=== PATIENT | male | born 1930 | race Caucasian/White ===

== ENCOUNTER 2017-02-19 15:46 | Observation (INO) | payer MEDICARE, MEDICAID ==
[~2017-02-19] VITALS: Ht 172.7 cm; Wt 80.9 kg
[~2017-02-19 15:46] MED LIST: AMLODIPINE5 MG PO; ASPIRIN CHILDRE81 MG PO; BENTYL10 MG OR; BENTYL10 MG PO; FLOMAX 0.4MG C0.4 MG PO; GLIMEPIRIDE4 MG PO; GLIPIZIDE5 MG PO; JANUVIA100 MG PO; LISINOPRIL 10MG10 MG PO; MEDROL 4MG. DOSE4 MG PO; MELOXICAM7.5 MG PO; METFORMIN500 MG PO; OMEPRAZOLE20 MG PO; PHENERGAN 25MG.25 M1 PO; PRINIVIL20 MG NG; PROMETHAZINE12.5 M1 PO; SIMVASTATIN10 MG PO; TYLENOL 325MG325 MG PO
[2017-02-19 15:53] VITALS: BP 116/73
--- NOTE | 2017-02-19 16:23 | Emergency Room Report ---
History of Present Illness Time Seen by [id number] Presenting Problem in Triage Pt arrived:Walked Presenting Problem:PT WAS AT [facility] AND WAS HAVING P.T. AND BEGAN TO HAVE SOME LEFT SIEDED CHEST PAIN AND WEAK LEGS. 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 N Clinical Suspician of Infection? Y Mental Status: 1 - Regular (Normal Baseline) Sepsis Risk:Low Sepsis Risk Have you (or family members/close friends) recently traveled outside the [place]? N If Yes, where/when: Have you had exposure to infectious disease within the past month? N TB? Other? Specify: Source patient, RN notes reviewed, family, RN/MD Exam Limitations no limitations Comment This is a 86-year-old male patient brought from [facility] with chest pain, single episode, onset around 1:30 PM, while in physical therapy. Episode was short-lived, 2-3 minutes, without associated shortness of breath, diaphoresis. Patient denies any previous cardiac history in the past, denies any previous similar episodes in the past. ALLERGIES Coded Allergies: procaine (From NOVOCAIN) (02/19/17) Home Medications Reported Medications INSULIN NPL/INSULIN LISPRO (Humalog Mix 75-25 Vial) 25 UNITS SC DAILY INSULIN NPL/INSULIN LISPRO (Humalog Mix 75-25 Vial) 20 UNITS SC DAILY Aspirin 81 MG PO DAILY Carvedilol (Coreg 6.25MG) 6.25 MG PO BID Apixaban (Eliquis) 5 MG PO BID Finasteride (Proscar 5MG Tablet) 5 MG PO DAILY Furosemide 40 MG PO BID Metronidazole (Flagyl 250MG) 500 MG PO TID Omeprazole (Omeprazole 20MG) 20 MG PO DAILY POTASSIUM CHL (Potassium Chloride) 20 MEQ PO DAILY TAMSULOSIN HCL (Flomax 0.4MG) 0.4 MG PO QHS Vancomycin HCl 250 MG PO DAILY History Medical History General CAD? No Angina: No ME: No Hypertension? Yes Hyperlipidemia? No CHF? No DVT? No PE? No COPD? No Asthma? No Anemia? No GERD? No Gastric ulcers? No GI Bleed? No Hernia? No Thyroid Problems? No Hypothyroidism? No CVA? Yes Seizures? 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 Yes Renal Insuffiency? No End Stage Renal Disease? No UTI? No Stones? No BPH? No GB Disease: Yes Nephritic Syndrome? No Asplenia? No Hepatitis? No Sickle Cell Disease? No Arthritis? Yes Migraines? No Cataracts? No Glaucoma? No MRSA? No HIV? No TB? No Anxiety? No Depression? No Cancer? Yes Site: [place]EMIA Immunization Hx DT/Tetanus UNKNOWN Flu LAST YEAR Pneumonia 1-4 YRS Surgical Hx Previous Surgery?Y FACIAL SKIN CA REMOVED Cholecystectomy Family History Family Hx Diabetes Yes CAD Yes Hypertension Yes Hyperlipidemia Yes Cancer Yes TB No Social History Smoking Hx Smoker: Former Smoker Tobacco: Yes Type Cigarettes Alcohol Alcohol: No Review of Systems All Other Systems Reviewed and Negative Cardiovascular chest pain, palpitations Physical Exam Vital Signs Vital Signs Date Time Temp Pulse Resp B/P Pulse O2 O2 Flow FiO2 Ox Delivery Rate 02/19 1812 98.4 76 16 137/71 100 08/10 1719 76 16 137/71 100 08/10 1638 100 08/10 1553 98.4 75 16 116/73 100 General Appearance normal appearance, WD/WN, no apparent distress Neck normal inspection, non-tender, supple, full range of motion Respiratory Status Yes: trachea midline, chest symmetrical, non tender chest. No: respiratory distress. Lung Sounds bilateral: normal breath sounds, lungs clear. 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 No Comment 17:25-case discussed with Dr. Weaver, advised the patient presentation and findings, lack of any previous cardiac workup as well as cardiac history, agreeable with hospitalization. Care transferred to Dr. Weaver at this time. I will write temporary, bridge, admission orders at this time, with units nurse to contact Dr. Weaver upon patient's arrival to the floor in order to obtain for inpatient admission orders. Results/Orders Laboratory Tests 02/19/17 1830: Creatine Kinase 35 L, CK-MB (CK-2) Rel Index 1.7, CK and CKMB Interp 0.6, Troponin I < 0.02 02/19/17 1601: Sodium 134 L, Potassium 5.0, Chloride 102, Carbon Dioxide 27, BUN 27 H, Creatinine 1.5 H, Estimated Creat Clear 37 L, Estimated GFR (MDRD) 44, Glucose 367 H, Calcium 8.8, Total Bilirubin 0.2, AST 16, ALT 12, Alkaline Phosphatase 81, Creatine Kinase 41, CK and CKMB Interp < 0.5, Troponin I < 0.02, Total Protein 7.7, Albumin 3.0 L, Globulin 4.7 H, Albumin/Globulin Ratio 0.6 L, WBC 5.0, RBC 3.91 L, Hgb 11.0 L, Hct 35.7 L, MCV 91.4, RDW 16.9, Plt Count 136 L , MPV 8.9, Gran % 69.9, Gran # 3.5, Lymphocytes % 18.7, Monocytes % 5.0, Eosinophils % 5.4, Basophils % 1.2, Lymphocytes # 0.9, Monocytes # 0.3, Eosinophils # 0.3, Basophils # 0.1, PUBS MCHC 30.9 L, MCH 28.2 Current Medication Orders Sig/Dio Start time Last Medication Dose Route Stop Time Status Admin Ceftriaxone Sodium 1 GM DAILY 02/20 0900 UNV Sodium Chloride 50 ML IV Vancomycin HCl 250 MG Q6H 02/19 1800 CAN PO Vancomycin HCl 250 MG DAILY 02/19 1750 UNV PO Aspirin 0 .STK-MED ONE 02/19 1619 DC .ROUTE Aspirin 325 MG ONCE ONE 02/19 1600 DC 02/19 PO 02/19 1601 1619 Sodium Chloride 10 ML PRN PRN 02/19 1600 AC IV 02/20 1558 Orders Procedure Date/time Status [id number] FAT/LO CHO/ONOFRE 02/20 B Active CARDIAC ENZYMES 02/19 2355 Active CARDIAC ENZYMES 02/19 1800 Complete Decision to admit 02/19 1735 Active 12 LEAD EKG-TAIWO (INITIAL) 02/19 1600 Active ELECTROCARDIOGRAM REQUEST 02/19 1559 Active IV SALINE LOCK 02/19 1559 Active OXYGEN PER NURSE 02/19 1559 Active KEYBOARD INSTRUMENT TUNER 02/19 1559 Active TROPONIN I 02/19 1559 Complete CPK 02/19 1559 Complete COMPLETE METABOLIC PANEL 02/19 1559 Complete CKMB 02/19 155 Complete CBC WITH AUTO DIFF 02/19 1559 Complete ADMIT PATIENT 02/19 UNK Active PULSE OXIMETRY REQUEST 02/19 UNK Active VITAL SIGNS 02/19 UNK Active APPRENTICE ARCHITECT 02/19 UNK Active POM NURSE MEMO HOSE ORDER 02/19 UNK Active CODE STATUS 02/19 UNK Active PATIENT ACTIVITY ORDER 02/19 UNK Active CM/EKG CM/satellite dish technician Rhythm Normal Sinus Rhythm Rate 85 Ectopy No Comments No acute ischemic changes EKG rate, NSR, rhythm, no evid. of ischemic chgs, no ectopy, normal QRS, normal HI, normal EKG, no EKG for comparison, non-spec. ST/Twave chgs, ST elevation, ST depression, LBBB, RBBB, ectopy, abnormal Q waves XRAY/CT/US XRAY/CT/US XRAY chest XR interpretation by reviewed by me Xray Results normal lungs, normal cardiac silhouette, no acute process Departure Departure Time of Disposition 1718 Disposition Still a Patient Clinical Impression Primary Impression: Chest pain Qualifiers: Chest pain type: unspecified Qualified Code: R07.9 - Chest pain, unspecified Condition STABLE Referrals KATHIE JOYA (Family) ED Critical Care Critical Care No at 1955
--- NOTE | 2017-02-19 16:23 | Emergency Room Report ---
History of Present Illness Time Seen by [id number] Presenting Problem in Triage Pt arrived:Walked Presenting Problem:PT WAS AT [facility] AND WAS HAVING P.T. AND BEGAN TO HAVE SOME LEFT SIEDED CHEST PAIN AND WEAK LEGS. 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 N Clinical Suspician of Infection? Y Mental Status: 1 - Regular (Normal Baseline) Sepsis Risk:Low Sepsis Risk Have you (or family members/close friends) recently traveled outside the [place]? N If Yes, where/when: Have you had exposure to infectious disease within the past month? N TB? Other? Specify: Source patient, RN notes reviewed, family, RN/MD Exam Limitations no limitations Comment This is a 86-year-old male patient brought from [facility] with chest pain, single episode, onset around 1:30 PM, while in physical therapy. Episode was short-lived, 2-3 minutes, without associated shortness of breath, diaphoresis. Patient denies any previous cardiac history in the past, denies any previous similar episodes in the past. ALLERGIES Coded Allergies: procaine (From NOVOCAIN) (02/19/17) Home Medications Reported Medications INSULIN NPL/INSULIN LISPRO (Humalog Mix 75-25 Vial) 25 UNITS SC DAILY INSULIN NPL/INSULIN LISPRO (Humalog Mix 75-25 Vial) 20 UNITS SC DAILY Aspirin 81 MG PO DAILY Carvedilol (Coreg 6.25MG) 6.25 MG PO BID Apixaban (Eliquis) 5 MG PO BID Finasteride (Proscar 5MG Tablet) 5 MG PO DAILY Furosemide 40 MG PO BID Metronidazole (Flagyl 250MG) 500 MG PO TID Omeprazole (Omeprazole 20MG) 20 MG PO DAILY POTASSIUM CHL (Potassium Chloride) 20 MEQ PO DAILY TAMSULOSIN HCL (Flomax 0.4MG) 0.4 MG PO QHS Vancomycin HCl 250 MG PO DAILY History Medical History General CAD? No Angina: No MS: No Hypertension? Yes Hyperlipidemia? No CHF? No DVT? No PE? No COPD? No Asthma? No Anemia? No GERD? No Gastric ulcers? No GI Bleed? No Hernia? No Thyroid Problems? No Hypothyroidism? No CVA? Yes Seizures? 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 Yes Renal Insuffiency? No End Stage Renal Disease? No UTI? No Stones? No BPH? No GB Disease: Yes Nephritic Syndrome? No Asplenia? No Hepatitis? No Sickle Cell Disease? No Arthritis? Yes Migraines? No Cataracts? No Glaucoma? No MRSA? No HIV? No TB? No Anxiety? No Depression? No Cancer? Yes Site: [place]EM[place] Immunization Hx DT/Tetanus UNKNOWN Flu LAST YEAR Pneumonia 1-4 YRS Surgical Hx Previous Surgery?Y FACIAL SKIN CA REMOVED Cholecystectomy Family History Family Hx Diabetes Yes CAD Yes Hypertension Yes Hyperlipidemia Yes Cancer Yes TB No Social History Smoking Hx Smoker: Former Smoker Tobacco: Yes Type Cigarettes Alcohol Alcohol: No Review of Systems All Other Systems Reviewed and Negative Cardiovascular chest pain, palpitations Physical Exam Vital Signs Vital Signs Date Time Temp Pulse Resp B/P Pulse O2 O2 Flow FiO2 Ox Delivery Rate 02/19 1812 98.4 76 16 137/71 100 08/10 1719 76 16 137/71 100 08/10 1638 100 08/10 1553 98.4 75 16 116/73 100 General Appearance normal appearance, WD/WN, no apparent distress Neck normal inspection, non-tender, supple, full range of motion Respiratory Status Yes: trachea midline, chest symmetrical, non tender chest. No: respiratory distress. Lung Sounds bilateral: normal breath sounds, lungs clear. 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 No Comment 17:25-case discussed with Dr. Weaver, advised the patient presentation and findings, lack of any previous cardiac workup as well as cardiac history, agreeable with hospitalization. Care transferred to Dr. Weaver at this time. I will write temporary, bridge, admission orders at this time, with units nurse to contact Dr. Weaver upon patient's arrival to the floor in order to obtain for inpatient admission orders. Results/Orders Laboratory Tests 02/19/17 1830: Creatine Kinase 35 L, CK-MB (CK-2) Rel Index 1.7, CK and CKMB Interp 0.6, Troponin I < 0.02 02/19/17 1601: Sodium 134 L, Potassium 5.0, Chloride 102, Carbon Dioxide 27, BUN 27 H, Creatinine 1.5 H, Estimated Creat Clear 37 L, Estimated GFR (MDRD) 44, Glucose 367 H, Calcium 8.8, Total Bilirubin 0.2, AST 16, ALT 12, Alkaline Phosphatase 81, Creatine Kinase 41, CK and CKMB Interp < 0.5, Troponin I < 0.02, Total Protein 7.7, Albumin 3.0 L, Globulin 4.7 H, Albumin/Globulin Ratio 0.6 L, WBC 5.0, RBC 3.91 L, Hgb 11.0 L, Hct 35.7 L, MCV 91.4, RDW 16.9, Plt Count 136 L , MPV 8.9, Gran % 69.9, Gran # 3.5, Lymphocytes % 18.7, Monocytes % 5.0, Eosinophils % 5.4, Basophils % 1.2, Lymphocytes # 0.9, Monocytes # 0.3, Eosinophils # 0.3, Basophils # 0.1, PUBS MCHC 30.9 L, MCH 28.2 Current Medication Orders Sig/Dio Start time Last Medication Dose Route Stop Time Status Admin Ceftriaxone Sodium 1 GM DAILY 02/20 0900 UNV Sodium Chloride 50 ML IV Vancomycin HCl 250 MG Q6H 02/19 1800 CAN PO Vancomycin HCl 250 MG DAILY 02/19 1750 UNV PO Aspirin 0 .STK-MED ONE 02/19 1619 DC .ROUTE Aspirin 325 MG ONCE ONE 02/19 1600 DC 02/19 PO 02/19 1601 1619 Sodium Chloride 10 ML PRN PRN 02/19 1600 AC IV 02/20 1558 Orders Procedure Date/time Status [id number] FAT/LO CHO/ONOFRE 02/20 B Active CARDIAC ENZYMES 02/19 2355 Active CARDIAC ENZYMES 02/19 1800 Complete Decision to admit 02/19 1735 Active 12 LEAD EKG-TAIWO (INITIAL) 02/19 1600 Active ELECTROCARDIOGRAM REQUEST 02/19 1559 Active IV SALINE LOCK 02/19 1559 Active OXYGEN PER NURSE 02/19 1559 Active JOB PUTTER UP AND TICKET PREPARER 02/19 1559 Active TROPONIN I 02/19 1559 Complete CPK 02/19 1559 Complete COMPLETE METABOLIC PANEL 02/19 1559 Complete CKMB 02/19 155 Complete CBC WITH AUTO DIFF 02/19 1559 Complete ADMIT PATIENT 02/19 UNK Active PULSE OXIMETRY REQUEST 02/19 UNK Active VITAL SIGNS 02/19 UNK Active INDUSTRIAL ORGANIZATION MANAGER 02/19 UNK Active POM NURSE MEMO HOSE ORDER 02/19 UNK Active CODE STATUS 02/19 UNK Active PATIENT ACTIVITY ORDER 02/19 UNK Active CM/EKG CM/temperature logging operator Rhythm Normal Sinus Rhythm Rate 85 Ectopy No Comments No acute ischemic changes EKG rate, NSR, rhythm, no evid. of ischemic chgs, no ectopy, normal QRS, normal [place], normal EKG, no EKG for comparison, non-spec. ST/Twave chgs, ST elevation, ST depression, LBBB, RBBB, ectopy, abnormal Q waves XRAY/CT/US XRAY/CT/US XRAY chest XR interpretation by reviewed by me Xray Results normal lungs, normal cardiac silhouette, no acute process Departure Departure Time of Disposition 1718 Disposition Still a Patient Clinical Impression Primary Impression: Chest pain Qualifiers: Chest pain type: unspecified Qualified Code: R07.9 - Chest pain, unspecified Condition STABLE Referrals KATHIE JOYA (Family) ED Critical Care Critical Care No at 1955
[2017-02-19 16:25] LABS: LYMPH # 0.9 K/mm3 (0.7-4.5); LYMPH % 18.7 % (10-50)
[2017-02-19] MEDS ORDERED: COREG 6.25MG6.25 MG PO (16:26)
[2017-02-19] MEDS ORDERED: ASPIRIN ADULT L81 M2 PO (16:26)
[2017-02-19] MEDS ORDERED: ELIQUIS5 MG PO (16:27)
[2017-02-19] MEDS ORDERED: PROSCAR 5MG TABL5 MG PO (16:29)
[2017-02-19] MEDS ORDERED: FUROSEMIDE 40MG40 M1 PO (16:30)
[2017-02-19] MEDS ORDERED: FLAGYL 250MG.250 MG PO (16:33)
[2017-02-19] MEDS ORDERED: OMEPRAZOLE20 MG PO (16:34)
[2017-02-19] MEDS ORDERED: FLOMAX 0.4MG C0.4 MG PO (16:35)
[2017-02-19] MEDS ORDERED: POTASSIUM CHLO20 ME2 PO (16:35)
[2017-02-19] MEDS ORDERED: VANCOMYCIN125 MG/2.5 PO (16:37)
--- NOTE | 2017-02-19 16:46 | RADIOLOGY REPORT PS360 ---
CHEST-PORTABLE HISTORY: Left-sided chest pain pain ORDERING PHYSICIAN: Donovan Montalvo MD PATIENT AGE: 86 years COMPARISON: None available FINDINGS: The cardiomediastinal silhouette and pulmonary vascularity are within normal limits. Right upper extremity PICC line is present. The tip is not well delineated. The most distal visualized portion of the PICC line is in region of the superior vena cava. No lobar consolidation or collapse. There are mild degenerative changes in the shoulders. IMPRESSION: 1. No acute finding. 2. Right upper extremity PICC line present
[2017-02-19 16:52] LABS: BUN 27 mg/dL (7-18)
[2017-02-19 16:53] LABS: GFR (ESTIMATED) 44 ML/MIN (>60)
[2017-02-19] MEDS ORDERED: HUMALOG MIX 75/10 ML SC ×2 (19:11→19:12)
[2017-02-19 19:13] VITALS: BP 178/84
[2017-02-19 19:17] VITALS: BP 178/84
--- OUTSIDE RECORDS SUMMARY | 2017-02-19 19:27 | External Medical Summary Rpt ---
Author Author , GABY GRIFFIN Address Unknown Phone [email or web address] Care Team Providers Care Tint Layer Name Role Phone WILLARD, WILLARD Unavailable Unavailable WILLARD JACQUE, WILLARD Unavailable Unavailable [facility], [facility] AMEENA, AMEENA Unavailable Unavailable [facility] Unavailable Unavailable SERVICES, [facility] Unavailable Unavailable SERVICES, [facility] Unavailable Unavailable HOSPITAL P, [facility] HE[facility], HEART Unavailable Unavailable [facility] Unavailable Unavailable [facility]INGS, [facility] Unavailable Unavailable [facility]INGS, [facility] RAUL, RAUL Unavailable Unavailable RAUL, RAUL Unavailable Unavailable [facility] Unavailable [facility], [facility] Unavailable Unavailable [facility]ATR, [facility] Unavailable Unavailable ASSOC[facility], [facility] Unavailable Unavailable MEDICAL, [facility] MONNIG, MONNIG Unavailable Unavailable DAVID, DAVID Unavailable Unavailable DAVID JAM, DAVID Unavailable Unavailable [facility] Unavailable Unavailable [facility], [facility] PAWSAT, PAWSAT Unavailable Unavailable PAWSAT, PAWSAT Unavailable Unavailable PAWSAT [facility], PAWSAT Unavailable Unavailable [facility], Unavailable [facility] Unavailable Unavailable EMERGENCY PHYS, [facility] MICHELLE, Unavailable Unavailable [facility] Unavailable Unavailable [facility] ABRAHAM, ABRAHAM Unavailable Unavailable NICOLAS, NICOLAS Unavailable Unavailable [facility] Unavailable Unavailable #1569, [facility] Unavailable Unavailable #1569, [facility] TRACY, Unavailable Unavailable JASKARAN CHINCHILLA Unavailable Unavailable DARLIN, DARLIN Unavailable Unavailable Purpose Continuity of Care Document - 07-31-2015 through 2016 Problems Code Diagnosis DOS Provider Status 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 [facility] WITH HYPERGLYCEM IA K750 ABSCESS OF 01-26-2017 [facility] LIVER INTERNAL & PEDIATR Z1883 RETAINED 01-26-2017 [place] STONE OR INTERNAL & CRYSTALLINE PEDIATR FRAGMENTS Z8719 PERSONAL 01-26-2017 [facility] HISTORY INTERNAL & OTHER PEDIATR DISEASES DIGESTIVE SYSTEM 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 M6281 MUSCLE 01-18-2017 [facility] WEAKNESS RESPITATORY GENERALIZED SERVICES R296 REPEATED 01-18-2017 [facility] RESPITATORY SERVICES L0291 CUTANEOUS 01-12-2017 [place] ABSCESS INTERNAL & UNSPECIFIED PEDIATR R1900 INTRA-ABD & 01-12-2017 [place] PELVIC INTERNAL & SWELLING PEDIATR MASS & LUMP UNS SITE Z794 FCI 01-12-2017 [place] CURRENT USE INTERNAL & OF INSULIN PEDIATR E119 TYPE 2 11-04-2016 [facility]US [facility]AT[facility] WITHOUT COMPLICATIO NS I2699 OTH 11-04-2016 [facility] PULMONARY [facility] & EMBOLISM PEDIATR W/O ACUTE COR PULMONALE I272 OTHER 11-04-2016 [place] SECONDARY INTER[facility] & PULMONARY PEDIATR HYPERTENSIO N H74959 PERSONAL 11-04-2016 [place] HISTORY OF INTERNAL & PULMONARY PEDIATR EMBOLISM R339 RETENTION 10-28-2016 [facility] P E1122 TYPE 2 10-19-2016 [facility] REG[facility]AL MELLITUS MEDICAL W/DIAB CHRON KIDNEY DZ N390 URINARY 10-19-2016 [facility] TRACT REGIONAL INFECTION MEDICAL SITE NOT SPECIFIED N401 BENIGN 10-08-2016 [facility] LW URINARY TRACT SX N400 BENIGN 10-04-2016 RAUL PROSTATIC HYPERPLASIA WO LW URIN TRACT SX R55 SYNCOPE AND 10-04-2016 [facility] COLLAPSE 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 A047 ENTEROCOLIT 09-25-2016 [facility] IS DUE TO AL[facility] CLOSTRIDIUM REHABILITAT DIFFICILE ION I129 HYPERTENSIV 09-25-2016 [facility] E CKD ALISON W/STAGE 1-4 REHABILITAT CKD OR UNS ION CKD T24473 FOOT DROP 09-25-2016 [facility] RIGHT FOOT [facility] REHABILITAT ION N183 CHRONIC 09-25-2016 [facility] KIDNEY [facility]ISON DISEASE REHABILITAT STAGE 3 ION MODERATE R5381 OTHER 09-25-2016 [facility] REHAB[facility]IT[facility] ION I959 HYPOTENSION 09-22-2016 [facility] UNSPECIFIED ASSOCIAT M7989 OTHER 09-22-2016 [place] SPECIFIED RADI[facility]Y SOFT TISSUE ASSOCIAT DISORDERS R000 TACHYCARDIA 09-22-2016 [facility] UNSPECIFIED ASSOCIAT A4189 OTHER 09-20-2016 [facility] SPECIFIED N EMERGENCY SEPSIS PHYS A419 SEPSIS 09-20-2016 [facility] UNSPECIFIED REGIONAL ORGANISM MEDICAL E875 HYPERKALEMI 09-20-2016 [facility] PH[facility] 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 09-20-2016 [place] SIS LG RAD[facility] INTEST W/O ASSOCIAT PERF/ABSC W/O BLEED N179 ACUTE 09-20-2016 [facility] KIDNEY N EMERGENCY FAILURE PHYS UNSPECIFIED R0602 SHORTNESS 09-20-2016 [place] OF BREATH RADIOLOGY ASSOCIAT R112 NAUSEA WITH 09-20-2016 [facility] VOMITING [facility] UNSPECIFIED ASSOCIAT R410 DISORIENTAT 09-20-2016 [place] ION RADIOLOG[facility] UNSPECIFIED ASSOCIAT R531 WEAKNESS 09-20-2016 [facility] ASS[facility]IAT R935 ABN FIND DX 09-20-2016 [place] IMAG OTH RAD[facility]OLOG[facility] ABD REGIONS ASSOCIAT RETROPERITO NEUM D509 IRON 09-11-2016 [facility] UNSPECIFIED 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 E785 HYPERLIPIDE 09-11-2016 [facility] UNSPECIFIED HEALTH CTR I10 ESSENTIAL 08-26-2016 [facility]IMARY [facility] HYPERTENSIO HEALTH CTR N C53642 CUTANEOUS 08-19-2016 [facility] ABSCESS OF RADIOLOGY ABDOMINAL ASSOCIAT WALL K651 PERITONEAL 07-31-2016 [place] ABSCESS [facility] ASSOCIAT M1990 UNSPECIFIED 07-30-2016 [facility] REGIONAL OSTEOARTHRI MEDICAL TIS UNSPECIFIED SITE R1011 RIGHT UPPER 07-30-2016 [facility] PAIN PHYSICIANS MAY Z823 FAMILY 07-30-2016 [facility] HISTORY OF REGIONAL STROKE MEDICAL Z8249 FAMILY HX 07-30-2016 [facility] ISCHEMIC REGIONAL HRT DZ OTH MEDICAL DZ CIRC SYSTEM Z833 FAMILY 07-30-2016 [facility] HISTORY OF REGIONAL DIABETES MEDICAL MELLITUS Z8572 PERSONAL 07-30-2016 [facility] HISTORY OF REGIONAL NON-HODGKIN MEDICAL LYMPHOMAS M545 LOW BACK 07-22-2016 [facility] PAIN FAMILY 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 CTR I6616FM FRACTURE 07-22-2016 [facility] ONE RIB INC RIGHT INITIAL ENCNTR CLOSED FX B351 TINEA 07-16-2016 [facility] UNGUIUM I49781 PAIN IN 07-16-2016 [facility] RIGHT FOOT P13186 PAIN IN 07-16-2016 [facility] LEFT FOOT G07576 PAIN IN 06-12-2016 [facility] LEFT LOWER INC LEG Q03444 PAIN IN 05-15-2016 [facility] RIGHT KNEE [facility] CTR N54416 PAIN IN 05-15-2016 [facility] LEFT KNEE [facility] CTR R3914 FEELING OF 04-08-2016 [facility] P EMPTYING R5383 OTHER 04-02-2016 [facility] FATIGUE [facility]ARY HOLDINGS E1140 TYPE 2 DM 02-27-2016 [facility]ACY DI[facility] #1569 NEUROPATHY UNSPECIFIED 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 CTR W/HYPOGLYCE ANKITA W/O COMA I83279 PAIN IN 12-26-2015 [facility] RIGHT HIP [facility] CTR P47088 OTHER LONG 12-26-2015 [facility] TERM FAMILY CURRENT HEALTH CTR DRUG THERAPY Allergies, Adverse Reactions, Alerts Clinical Alert Notifications Alert Diabetes: no eye exam in the last 365 days Diabetes: no influenza vaccine in the last 365 days Diabetes: no lipid panel in the last 365 days Member has >/= 3 hosp admit & >/= 1 ED visit in 365 days Procedures Procedure DOS Code Location Performer Comment CUL BACT 02531 [facility] XCPT 7 [facility] URINE HOLDINGS HOLDINGS BLOOD/STO OL AEROBIC ISOL COMMODE E0165 [facility] MEG CHAIR 7 RESPITATO RESPITATO MOBILE/ST RY RY ATIONARY SERVICES SERVICES W/DETACHB LE ARMS CUL BACT 61996 [facility] XCPT 7 MARY MARY URINE HOLDINGS HOLDINGS BLOOD/STO OL AEROBIC ISOL CUL BACT 68036 [facility] 7 W W ADDL REGIONAL REGIONAL METHS MEDICAL MEDICAL DEFINITIV E EA ISOL CULTURE 05154 [facility] KATHIE BACTERIAL 7 W W [facility] QUANTTATI MEDICAL MEDICAL VE COLONY COUNT URINE BASIC 19207 KATHIE MEAWROSY METABOLIC 7 W W [facility] CALCIUM MEDICAL MEDICAL TOTAL COMMODE E0165 MEG MEG CHAIR 7 RESPITATO RESPITATO MOBILE/ST RY RY ATIONARY SERVICES SERVICES W/DETACHB LE ARMS SUSCEPTIB 30346 KATHIE BENAVIDEZWROSY LTY STDY 7 W W [facility] IA MEDICAL MEDICAL MICRO/AGA R DILUTJ URNLS DIP 26962 PRAMODWROSY MEAWVIE 7 W W STICK/TAB [facility] LET MEDICAL MEDICAL REAGENT AUT[facility] [address] [place] [address] PHYSICAL DAY MEDICINE MANAGEMEN AND T 30 MIN/< SBSQ 82537 [place] [address] PHYSICAL CARE/DAY MEDICINE 15 AND MINUTES SBSQ 79700 [facility] 7 CARE/DAY 25 MINUTES SBSQ 55861 [place] [address] PHYSICAL CARE/DAY MEDICINE 25 AND MINUTES SBSQ 23329 [place] [address] PHYSICAL CARE/DAY MEDICINE 25 AND MINUTES SBSQ 82987 [facility] 7 CARE/DAY 25 MINUTES SBSQ 90247 [facility] 7 CARE/DAY 15 MINUTES SBSQ 65753 [facility] 7 CARE/DAY 15 MINUTES SBSQ 48503 [facility] 7 CARE/DAY 25 MINUTES SBSQ 27597 [place] [address] PHYSICAL CARE/DAY MEDICINE 25 AND MINUTES SBSQ 13708 [place] [address] PHYSICAL CARE/DAY MEDICINE 25 AND MINUTES SBSQ 30425 [place] [address] PHYSICAL CARE/DAY MEDICINE 25 AND MINUTES SBSQ 14047 [place] [address] PHYSICAL CARE/DAY MEDICINE 25 AND MINUTES SBSQ 74946 [place] [address] PHYSICAL CARE/DAY MEDICINE 25 AND MINUTES INITIAL 32831 [facility] 7 CARE/DAY 70 MINUTES SBSQ 85848 [facility] 7 PHYSICAL CARE/DAY MEDICINE 15 AND MINUTES SBSQ 99737 [place] [address] PHYSICAL CARE/DAY MEDICINE 25 AND MINUTES HOSPITAL 95613 [facility] 7 W DAY [facility]PITALI MANA[address]EM[address] T > 30 MIN INITIAL [address]3757 [place] [address] PHYSICAL CARE/DAY MEDICINE 50 AND MINUTES SBSQ 98200 [facility] 7 W CARE/DAY HOSPITALI [address] MINUTES SBSQ 26062 [facility] 7 W CARE/DAY HOSPITALI [address] MINUTES SBSQ 27555 [facility] 7 W CARE/DAY HOSPITALI [address] MINUTES DUP-SCAN 61035 [facility] XTR VEINS 7 COMPLETE [place] [address] [facility] HEAD/BRAI 7 N W/O RADIOLOGY CONTRAST ASSOCIAT MATERIAL RADIOLOGI 40187 [facility] 7 EXAMINATI RADIOLOGY ON CHEST ASSOCIAT SING[place] FRONTAL PULMONARY 49350 [facility] 7 VENTILATI RADIOLOGY ON & ASSOCIAT PERFUSION IMAGING ECHO 11448 [facility] T[facility] R-T 7 N N 2D W/WOM-MOD E COMPL SPEC&COLR D SBSQ 91501 [facility] 7 W CARE/DAY HOSPITALI [address] MINUTES CRITICAL 81409 [facility] 7 W ILL/INJUR HOSPITALI ED ST PATIENT INIT 30-74 MIN RADIOLOGI 99310 [facility] C 7 EXAMINATI RADIOLOGY RADIOLOGY ON CHEST ASSOCIAT ASSOCIAT S[place] FRONTAL ECG 95166 [facility] ROUTINE 7 RAHAT ECG EMERGENCY W/LEAST PHYS 12 LDS I&[place] [address] [facility] ABDOMEN & 7 PELVIS RADIOLOGY RADIOLOGY W/O ASSOCIAT ASSOCIAT CONTRAST MATERIAL COMMODE E0165 MEG MEG CHAIR 7 RESPITATO RESPITATO MOBILE/ST RY RY ATIONARY SERVICES SERVICES W/DETACHB LE ARMS BLOOD 67012 [facility] COUNT 7 MARY MARY COMPLETE HOLDINGS HOLDINGS AUTO&AUTO DIFRNTL WBC GLUC BLD 59011 [facility] HERNANDEZ GLUC MNTR 7 [facility] HE[facility] CLEARED CTR FDA SPEC HOME USE HGB 59102 CARA HERNANDEZ GLYCOSYLA 7 [facility] MEM[facility] DEVICE CTR CLEARED FDA HOME USE COMPREHEN 28899 [facility] SIVE 7 MARY MARY METABOL[place] [address] [facility] IRON 7 MARY M[facility] HOLDINGS HOLDINGS COLLECTIO 93209 [facility] L[facility] N VENOUS 7 MARY MARY BLOOD HOLDINGS HOLDINGS VENIPUNCT URE FEDERALLY G0467 [facility] CO CARA CO [address] [facility] CTR CTR CENTER VISIT ESTAB PT FEDERALLY G0467 [facility] CARA CO [address] [facility] CTR CTR CENTER VISIT ESTAB PT BLD GLU A4253 [facility] TEST/REAG 7 PHARMACY PHARMACY T STRIPS #1569 #1569 HOME BLD GLU MON-50 COMMODE E0165 MEG MEG CHAIR 7 RESPITATO RESPITATO MOBILE/ST RY RY ATIONARY SERVICES SERVICES W/[place] [address] [facility] ABDOMEN 7 W/O & RADIOLOGY RADIOLOGY W/[place] [address] [facility] ABDOMEN 7 W/CONTRAS RADIOLOGY RADIOLOGY T ASSOCIAT ASSOCIAT MATERIAL IMG-GUIDE 11363 [facility] FLUID 7 COLLXN RADIOLOGY [place]RA[place] [address] [facility] ABDOMEN 7 KODYNIK GATES W/O CONTRAST PHYSICIAN PHYSICIAN MATERIAL S November DRAINAGE [id number] KATHIE VÁZQUEZ OF LIVER 7 W W [facility]IONAL OUS MEDICAL MEDICAL APPROACH RADEX 47014 RADIOLOGY JESSICA RIBS UNI 7 INC W/POSTERO ANT CH MINIMUM 3 VIEWS FEDERALLY G0467 [facility] CAR[facility] CO [address] [facility] CTR CTR CENTER VISIT ESTAB PT DEBRIDEME 11253 [facility] PAWSAT NT NAIL 7 ANY METHOD 6/> BLD GLU A4253 [facility] TEST/REAG 7 PHARMACY PHARMACY T STRIPS #1569 #1569 HOME BLD GLU MON-50 GLUC BLD 84299 [facility] HERNANDEZ GLUC MNTR 6 [facility] CLE[facility]ED [facility] FDA SPEC HOME USE RADIOLOGI 96281 CARA Lo 6 [employer] ON TIBIA CTR & FIBULA 2 VIEWS FEDERALLY G0467 CARA MARROQUIN CO [address] [facility] CTR CTR CENTER VISIT ESTAB PT BLD GLU A4253 [facility] TEST/REAG 6 PHARMACY PHARMACY T STRIPS #1569 #1569 HOME BLD GLU MON50 FEDERALLY G0467 CAR[facility] MARROQUIN CO [address] [facility] CTR CTR CENTER VISIT ESTAB PT URNLS DIP 39984 [facility] WILLARD 6 [facility] LET RGNT P NON-AUTO W/O MICRSCP COMPREHEN 66485 [facility] SIVE 6 [facility] METABOLIC HOLDINGS HOLDINGS PANEL COLLECTIO 39779 [facility] LAB L[facility] N VENOUS 6 [facility] BLOOD HOLDINGS HOLDINGS VENIPUNCT URE HGB 37859 CARA HERNANDEZ GLYCOSYLA 6 [facility] CTR CLEARED FDA HOME USE FEDERALLY G0467 CARA MARROQUIN CO [address] [facility] CTR CTR CENTER VISIT ESTAB PT GLUC BLD 09819 CAR[facility] HERNANDEZ GLUC MNTR 6 [employer] FDA SPEC HOME USE BLOOD 55012 LAB [facility] LAB [facility] COUNT 6 MARY MARY COMPLETE HOLDINGS HOLDINGS AUTO&AUTO DIFRNTL WBC BLD GLU A4253 [facility] TEST/REAG 6 PHARMACY PHARMACY T STRIPS #1569 #1569 HOME BLD GLU MON-50 GLUC BLD 34770 [facility] HERNANDEZ GLUC MNTR 6 [facility] FDA SPEC HOME USE BLOOD 21701 [facility] LAB [facility] COUNT 6 MARY MARY COMPLETE HOLDINGS HOLDINGS AUTO&AUTO DIFRNTL WBC COLLECTIO 04667 [facility] LAB L[facility] N VENOUS 6 [facility] BLOOD HOLDINGS HOLDINGS VENIPUNCT URE COMPREHEN 15497 [facility] LAB L[facility] SIVE 6 [facility] METABOLIC HOLDINGS HOLDINGS PANEL FEDERALLY G0467 [facility] CARA CO [address] [facility] CTR CTR CENTER VISIT ESTAB PT DEBRIDEME 80356 PAWSAT PAWSAT NT NAIL 6 MAR MAR ANY METHOD 6/> BLOOD 17090 [facility] LAB [facility] COUNT 6 [facility] COMPLETE HOLDINGS HOLDINGS AUTO&AUTO DIFRNTL WBC GLUC BLD 70517 [facility] DAVID GLUC MNTR 6 [facility] Fast Fi[facility] CLEARED CTR FDA SPEC HOME USE FEDERALLY G0467 [facility] CARA CO [address] [facility] CTR CTR CENTER VISIT ESTAB PT COMPREHEN 67028 [facility] LAB [facility] SIVE 6 [facility] METABOLIC HOLDINGS HOLDINGS PANEL BLD GLU A4253 [facility] TEST/REAG 6 PHARMACY PHARMACY T STRIPS #1569 #1569 HOME BLD GLU MON-50 Encounters Encounter Start End Date Code Location Performer Type Date OFFICE 80836 [facility] OUTPATIEN [address] T VISIT & 25 PEDIATR MINUTES OFFICE 03113 [facility] OUTPATIEN [address] T VISIT & [address] P[address]ES OFFICE [address]60 [facility] OUTPATIEN [address] T VISIT & 25 PEDIATR MINUTES OFFICE 91416 [facility] OUTPATIEN 7 7 [facility] VISIT HOSPITAL 10 P MINUTES HOSPITAL ME[facility]IE - 7 7 W OUTPATIEN REGIONAL T MEDICAL OFFICE 24673 [facility] 15 P MINUTES OFFICE 23827 [facility] OUTPATI[facility] 7 7 [place] [facility] NEW 30 CLINIC MINUTES [facility] CARDINAL - 7 7 [place] INPATIENT REHABILIT [facility] - 7 7 W INPATIENT [facility] MEDICAL EMERGENCY 13413 [facility] 7 7 RAHAT VISIT EMERGENCY HIGH PHYS SEVERITY& THREAT FUNCJ OFFICE 73053 [facility] OUTPATIEN 7 7 FAMILY T VISIT HEALTH 15 CTR MINUTES OFFICE 67707 [facility] OUTPATIEN 7 7 FAMILY T VISIT HEALTH 25 CTR MINUTES [facility]OS[facility] 7 W INPATIENT [facility] MEDICAL EMERGENCY 60578 [facility] 7 7 RAHAT VISIT EMERGENCY HIGH PHYS SEVERITY& THREAT FUNCJ OFFICE 21417 [facility] OUTPATIEN 7 7 FAMILY T VISIT HEALTH 25 CTR MINUTES OFFICE 49612 [facility] OUTPATIEN 6 6 FAMILY T VISIT HEALTH 25 CTR MINUTES OFFICE 85621 [facility] OUTPATIEN 6 6 FAMILY T VISIT HEALTH 15 CTR MINUTES OFFICE 79841 [facility] WILLARD OUTPATIEN 6 6 [facility] 10 P MINUTES OFFICE 11739 [facility] OUTPATIEN 6 6 FAMILY T VISIT HEALTH 25 CTR MINUTES OFFICE 64621 [facility] OUTPATIEN 6 6 FAMILY T VISIT HEALTH 25 CTR MINUTES OFFICE 71480 [facility] OUTPATIEN 6 6 FAMILY T VISIT HEALTH 25 CTR MINUTES
--- OUTSIDE RECORDS SUMMARY | 2017-02-19 19:27 | External Medical Summary Rpt ---
Author Author , GABY GRIFFIN Address Unknown Phone [email or web address] Care Team Providers Care Security Systems Engineer Name Role Phone WILLARD, WILLARD Unavailable Unavailable WILLARD JACQUE, WILLARD Unavailable Unavailable [facility], [facility] AMEENA, AMEENA Unavailable Unavailable [facility] Unavailable Unavailable SERVICES, [facility] Unavailable Unavailable SERVICES, [facility] Unavailable Unavailable HOSPITAL P, [facility] HE[facility], [facility] Unavailable Unavailable [facility] Unavailable Unavailable [facility]INGS, [facility] Unavailable Unavailable [facility]INGS, [facility] RAUL, RAUL Unavailable Unavailable RAUL, RAUL Unavailable Unavailable [facility], [facility]available Unavailable [facility]ATR, [facility] Unavailable [facility]available ASSOCI, [facility] Unavailable Unavailable MEDICAL, [facility] MONNIG, MONNIG Unavailable Unavailable DAVID, DAVID Unavailable Unavailable DAVID JAM, DAVID Unavailable Unavailable [facility] Unavailable Unavailable PSC, [facility] PAWSAT, PAWSAT Unavailable Unavailable PAWSAT, PAWSAT Unavailable Unavailable PAWSAT [facility], PAWSAT Unavailable Unavailable [facility], Unavailable [facility]available [facility] Unavailable Unavailable EMERGENCY PHYS, [facility] MICHELLE, Unavailable Unavailable MICHELLE ST. 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 M6281 MUSCLE 01-18-2017 [facility] RESPITATORY GENERALIZED SERVICES R296 REPEATED 01-18-2017 [facility] [place] [facility] SERVICES L0291 CUTANEOUS 01-12-2017 [place] ABSCESS INTERNAL & UNSPECIFIED PEDIATR R1900 INTRA-ABD & 01-12-2017 [facility] PELVIC INTERNAL & SWELLING PEDIATR MASS & LUMP UNS SITE Z794 HALFWAY 01-12-2017 [facility] CURRENT USE INTERNAL & OF INSULIN PEDIATR E119 TYPE 2 11-04-2016 [facility] & [facility]EDIAT[facility] WITHOUT COMPLICATIO NS I2699 OTH 11-04-2016 [facility] PULMONARY INTERNAL & EMBOLISM PEDIATR W/O ACUTE COR PULMONALE I272 OTHER 11-04-2016 [place] SECONDARY INTERNAL & PULMONARY PEDIATR HYPERTENSIO N X97090 PERSONAL 11-04-2016 [place] HISTORY OF INTERNAL & PULMONARY PEDIATR EMBOLISM R339 RETENTION 10-28-2016 [facility] P E1122 TYPE 2 10-19-2016 [place] DIABETES REGIONAL MELLITUS MEDICAL W/DIAB CHRON KIDNEY DZ N390 URINARY 10-19-2016 [place] TRACT REGIONAL INFECTION MEDICAL SITE NOT SPECIFIED [...] 1-4 REHABILITAT CKD OR UNS ION CKD M01626 FOOT DROP 09-25-2016 [facility] FOOT [facility] REHABIL[facility] ION N183 CHRONIC 09-25-2016 [facility] KIDNEY [facility] DISEASE REHABILITAT STAGE 3 ION MODERATE R5381 OTHER 09-25-2016 [facility] ION I959 HYPOTENSION 09-22-2016 [facility] UNSPECIFIED ASSOCIAT M7989 OTHER 09-22-2016 [place] SPECIFIED RADIOLOGY SOFT TISSUE ASSOCIAT DISORDERS R000 TACHYCARDIA 09-22-2016 [facility] UNSPECIFIED ASSOCIAT A4189 OTHER 09-20-2016 [facility] SPECIFIED N EMERGENCY SEPSIS PHYS A419 SEPSIS 09-20-2016 [facility] UNSPECIFIED REGIONAL ORGANISM MEDICAL E875 HYPERKALEMI 09-20-2016 [facility] EMERGENCY PHYS 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 09-20-2016 [place] SIS [facility] RADIOLOGY INTEST W/O ASSOCIAT PERF/ABSC W/O BLEED N179 ACUTE 09-20-2016 [facility] KIDNEY N EMERGENCY FAILURE PHYS UNSPECIFIED R0602 SHORTNESS 09-20-2016 [place] OF BREATH RADIOLOGY ASSOCIAT R112 NAUSEA WITH 09-20-2016 [place] [place] VOMITING RADIOLOGY UNSPECIFIED ASSOCIAT R410 DISORIENTAT 09-20-2016 [place] ION RADIOLOGY UNSPECIFIED ASSOCIAT R531 WEAKNESS 09-20-2016 [facility] ASS[facility]IAT R935 ABN FIND DX 09-20-2016 [place] IMAG OTH RADIOLOGY ABD REGIONS ASSOCIAT RETROPERITO NEUM D509 IRON 09-11-2016 [facility] UNSPECIFIED 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 E785 HYPERLIPIDE 09-11-2016 [facility] UNSPECIFIED HEALTH CTR I10 ESSENTIAL 08-26-2016 [facility] PRIMARY [facility] HYPERTENSIO HEALTH CTR N O87937 CUTANEOUS 08-19-2016 [place] ABSCESS OF RADIOLOGY ABDOMINAL ASSOCIAT WALL K651 PERITONEAL 07-31-2016 [place] ABSCESS RADIOLOGY ASSOCIAT M1990 UNSPECIFIED 07-30-2016 [facility] [...] LOW BACK 07-22-2016 [facility] PAIN FAMILY [facility] 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 [facility] CTR TIETZE R0781 PLEURODYNIA 07-22-2016 [facility] CTR W0865KB FRACTURE 07-22-2016 [facility] ONE RIB INC RIGHT INITIAL ENCNTR CLOSED FX B351 TINEA 07-16-2016 [facility] UNGUIUM N60659 PAIN IN 07-16-2016 [facility] RIGHT FOOT K81875 PAIN IN 07-16-2016 [facility] LEFT FOOT E62442 PAIN IN 06-12-2016 [facility] LEFT LOWER INC LEG O93071 PAIN IN 05-15-2016 [facility] RIGHT KNEE [facility] R22360 PAIN IN 05-15-2016 [facility] LEFT KNEE [facility] R3914 FEELING OF 04-08-2016 [facility] P EMPTYING R5383 OTHER 04-02-2016 [facility]IGUE [facility] E1140 TYPE 2 DM 02-27-2016 [facility] WITH PHARMACY DIABETIC #1569 NEUROPATHY UNSPECIFIED 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 A16016 TYPE 2 12-26-2015 [facility] DIABETES [facility] MELLITUS [facility] CTR W/HYPOGLYCE ANKITA W/O COMA Q60774 PAIN IN 12-26-2015 [facility] RIGHT HIP [facility] Y43794 OTHER LONG 12-26-2015 [facility] TERM FAMILY [...] DOS Code Location Performer Comment CUL BACT 76570 [facility] XCPT 7 [facility] URINE [facility]INGS HOLDINGS BLOOD/STO OL AEROBIC ISOL COMMODE E0165 MEG MEG CHAIR 7 RESPITATO RESPITATO MOBILE/ST RY RY ATIONARY SERVICES SERVICES W/DETACHB LE ARMS CUL BACT 77979 [facility] XCPT 7 MARY MARY URINE HOLDINGS HOLDINGS BLOOD/STO OL AEROBIC ISOL CUL BACT 03473 [facility] A[facility] 7 W W ADDL [facility] MEDICAL MEDICAL DEFINITIV E EA ISOL CULTURE 50631 [facility] KATHIE BACTERIAL 7 W W [facility] QUANTTATI MEDICAL MEDICAL VE COLONY COUNT URINE BASIC 97912 KATHIE MEAWROSY METABOLIC 7 W W [facility] CALCIUM MEDICAL MEDICAL TOTAL COMMODE E0165 MEG MEG CHAIR 7 RESPITATO RESPITATO MOBILE/ST RY RY ATIONARY SERVICES SERVICES W/DETACHB LE ARMS SUSCEPTIB 35933 KATHIE BENAVIDEZWROSY LTY STDY 7 W W [facility] IA MEDICAL MEDICAL MICRO/AGA R DILUTJ URNLS DIP 06808 PRAMODWROSY MEAWVIE 7 W W STICK/TAB [facility] LET MEDICAL MEDICAL REAGENT AUTO [facility] [address] [place] [address] PHYSICAL DAY MEDICINE MANAGEMEN AND T 30 MIN/< SBSQ 87178 [place] [address] PHYSICAL CARE/DAY MEDICINE 15 AND MINUTES SBSQ 28545 [facility] 7 CARE/DAY 25 MINUTES SBSQ 34989 [place] [address] PHYSICAL CARE/DAY MEDICINE 25 AND MINUTES SBSQ 63716 [place] [address] PHYSICAL CARE/DAY MEDICINE 25 AND MINUTES SBSQ 47273 [facility] 7 CARE/DAY 25 MINUTES SBSQ 61858 [facility] 7 CARE/DAY 15 MINUTES SBSQ 96630 [facility] 7 CARE/DAY 15 MINUTES SBSQ 07421 [facility] 7 CARE/DAY 25 MINUTES SBSQ 72090 [place] [address] PHYSICAL CARE/DAY MEDICINE 25 AND MINUTES SBSQ 24523 [place] [address] PHYSICAL CARE/DAY MEDICINE 25 AND MINUTES SBSQ 10576 [place] [address] PHYSICAL CARE/DAY MEDICINE 25 AND MINUTES SBSQ 27638 [place] [address] PHYSICAL CARE/DAY MEDICINE 25 AND MINUTES SBSQ 38840 [place] [address] PHYSICAL CARE/DAY MEDICINE 25 AND MINUTES INITIAL 54976 [facility] 7 CARE/DAY 70 MINUTES SBSQ 84279 [facility] 7 PHYSICAL CARE/DAY MEDICINE 15 AND MINUTES SBSQ 80827 [place] [address] PHYSICAL CARE/DAY MEDICINE 25 AND MINUTES HOSPITAL 50382 [facility] 7 W DAY HOSPITALI MANAGEMEN ST T > 30 MIN INITIAL 54180 [place] [address] PHYSICAL CARE/DAY MEDICINE 50 AND MINUTES SBSQ 82567 [facility] 7 W CARE/DAY HOSPITALI [address] MINUTES SBSQ 12479 [facility] 7 W CARE/DAY HOSPITALI [address] MINUTES SBSQ 92182 [facility] 7 W CARE/DAY [facility]OSPITALI [address] MINUTES DUP-SCAN 91934 [facility] XTR VEINS 7 COMPLETE [place] [address] [facility] HEAD/BRAI 7 N W/O RADIOLOGY CONTRAST ASSOCIAT MATERIAL RADIOLOGI 63736 [facility] 7 EXAMINATI RADIOLOGY ON CHEST ASSOCIAT [place] FRONTAL PULMONARY 22263 [facility] 7 VENTILATI RADIOLOGY ON & ASSOCIAT PERFUSION IMAGING ECHO 57661 [facility] R-T 7 N N 2D W/WOM-MOD E COMPL SPEC&COLR D SBSQ 29043 [facility] 7 W CARE/DAY HOSPITALI [address] MINUTES CRITICAL 99797 [facility] 7 W ILL/INJUR HOSPITALI ED ST PATIENT INIT 30-74 MIN RADIOLOGI 47552 [facility] C 7 EXAMINATI RADIOLOGY RADIOLOGY ON CHEST ASSOCIAT ASSOCIAT [place] FRONTAL ECG 20820 [facility] ROUTINE 7 RAHAT ECG EMERGENCY W/LEAST PHYS 12 LDS I&[place] [address] [facility] ABDOMEN & 7 [facility] RADIOLOGY RADIOLOGY W/O ASSOCIAT ASSOCIAT CONTRAST MATERIAL COMMODE E0165 MEG MEG CHAIR 7 RESPITATO RESPITATO MOBILE/ST RY RY ATIONARY SERVICES SERVICES W/DETACHB LE ARMS BLOOD 68987 [facility] COUNT 7 MARY MARY COMPLETE HOLDINGS HOLDINGS AUTO&AUTO DIFRNTL WBC GLUC BLD 82843 [facility] HERNANDEZ GLUC MNTR 7 [facility] HEALTH CLEARED CTR FDA SPEC HOME USE HGB 19099 [facility] HERNANDEZ GLYCOSYLA 7 [facility] DEVICE CTR CLEARED FDA HOME USE COMPREHEN 33089 [facility] SIVE 7 MARY MARY METABOLIC [place] [address] [facility] IRON 7 MARY MARY HOLDINGS HOLDINGS COLLECTIO 13927 [facility] N VENOUS 7 MARY MARY BLOOD HOLDINGS HOLDINGS VENIPUNCT URE FEDERALLY G0467 [facility] CO 7 [facility] CTR CTR CENTER VISIT ESTAB PT FEDERALLY G0467 [facility] CO 7 [facility] CTR CTR CENTER VISIT ESTAB PT BLD GLU A4253 [facility] TEST/REAG 7 PHARMACY PHARMACY T STRIPS #1569 #1569 HOME BLD GLU MON-50 COMMODE E0165 MEG MEG CHAIR 7 RESPITATO RESPITATO MOBILE/ST RY RY ATIONARY SERVICES SERVICES W/[place] [address] [facility] ABDOMEN 7 W/O & RADIOLOGY RADIOLOGY W/[place] [address] [facility] ABDOMEN 7 W/CONTRAS RADIOLOGY RADIOLOGY T ASSOCIAT ASSOCIAT MATERIAL IMG-GUIDE 64614 [facility] [facility] FLUID 7 COLLXN RADIOLOGY [place]RA[place] [address] [facility]. ABDOMEN 7 KODYNIK GATES W/O CONTRAST PHYSICIAN PHYSICIAN MATERIAL S November DRAINAGE [id number] KATHIE VÁZQUEZ OF LIVER 7 W W [facility] MEDICAL MEDICAL APPROACH RADEX 79214 RADI[facility] JESSICA RIBS UNI 7 INC W/POSTERO ANT CH MINIMUM 3 VIEWS FEDERALLY G0467 [facility] 7 [facility] CTR CTR CENTER VISIT ESTAB PT DEBRIDEME 27904 [facility] PAWSAT NT NAIL 7 ANY METHOD 6/> BLD GLU A4253 [facility] TEST/REAG 7 PHARMACY PHARMACY T STRIPS #1569 #1569 HOME BLD GLU MON-50 GLUC BLD 32527 [facility] HERNANDEZ GLUC MNTR 6 [employer] CLEARED CTR FDA SPEC HOME USE RADIOLOGI 20410 CARA Lo 6 [employer] ON TIBIA CTR & FIBULA 2 VIEWS FEDERALLY G0467 [facility] CO 6 [facility] CTR CTR CENTER VISIT ESTAB PT BLD GLU A4253 [facility] TEST/REAG 6 PHARMACY PHARMACY T STRIPS #1569 #1569 HOME BLD GLU MON50 FEDERALLY G0467 [facility] CO 6 [facility] CTR CTR CENTER VISIT ESTAB PT URNLS DIP 11393 [facility] LET RGNT P NON-AUTO W/O MICRSCP COMPREHEN 60956 [facility] SIVE 6 [facility] METABOLIC HOLDINGS HOLDINGS PANEL COLLECTIO 08034 LAB [facility] N VENOUS 6 MARY MARY BLOOD HOLDINGS HOLDINGS VENIPUNCT URE HGB 45934 CARA HERNANDEZ GLYCOSYLA 6 [employer] HEALTH DEVICE CTR CLEARED FDA HOME USE FEDERALLY G0467 [facility] CO 6 [facility] CTR CTR CENTER VISIT ESTAB PT GLUC BLD 14042 [facility] HERNANDEZ GLUC MNTR 6 [employer] CLEARED CTR FDA SPEC HOME USE BLOOD 43810 [facility] COUNT 6 MARY MARY COMPLETE HOLDINGS HOLDINGS AUTO&AUTO DIFRNTL WBC BLD GLU A4253 [facility] TEST/REAG 6 PHARMACY PHARMACY T STRIPS #1569 #1569 HOME BLD GLU MON-50 GLUC BLD 52540 [facility] HERNANDEZ GLUC MNTR 6 [employer] CLEARED CTR FDA SPEC HOME USE BLOOD 58054 [facility] COUNT 6 MARY MARY COMPLETE HOLDINGS HOLDINGS AUTO&AUTO DIFRNTL WBC COLLECTIO 58403 [facility] N VENOUS 6 [facility] BLOOD HOLDINGS HOLDINGS VENIPUNCT URE COMPREHEN 48729 [facility] L[facility] SIVE 6 [facility] METABOLIC HOLDINGS HOLDINGS PANEL FEDERALLY G0467 [facility] 6 [facility] CTR CTR CENTER VISIT ESTAB PT DEBRIDEME 98819 [facility] PAWSAT NT NAIL 6 MAR MAR ANY METHOD 6/> BLOOD 30332 [facility] COUNT 6 [facility] COMPLETE HOLDINGS HOLDINGS AUTO&AUTO DIFRNTL WBC GLUC BLD 60219 [facility] DAVID GLUC MNTR 6 [facility] S B E CLEARED CTR FDA SPEC HOME USE FEDERALLY G0467 [facility] 6 [facility] CTR CTR CENTER VISIT ESTAB PT COMPREHEN 81839 [facility] SIVE 6 [facility] METABOLIC HOLDINGS HOLDINGS PANEL BLD GLU A4253 [facility] TEST/REAG 6 PHARMACY PHARMACY T STRIPS #1569 #1569 HOME BLD GLU MON-50 Encounters Encounter Start End Date Code Location Performer Type Date OFFICE 98340 [facility] [address] T VISIT & 25 PEDIATR MINUTES OFFICE 07784 [facility] [address] T VISIT & 25 PEDIATR MINUTES OFFICE 94172 [facility] [address] T VISIT & 25 PEDIATR MINUTES OFFICE 72787 [facility] 7 7 [facility] VISIT HOSPITAL 10 P MINUTES HOSPITAL [facility] - 7 7 W OUTPATIEN REGIONAL T MEDICAL OFFICE 50286 [facility] OUTPATIEN 7 7 [facility] T VISIT HOSPITAL 15 P MINUTES OFFICE 08441 [facility] 7 7 [place] [facility] 30 CLINIC MINUTES [facility] - [address] [facility] - 7 7 W INPATIENT [facility] MEDICAL EMERGENCY 22108 [facility] 7 7 [facility] VISIT EMERGENCY HIGH PHYS SEVERITY& THREAT FUNCJ OFFICE 97817 [facility] 7 7 FAMILY T VISIT HEALTH 15 CTR MINUTES OFFICE 95248 [facility] OUTPATIEN 7 7 FAMILY T VISIT HEALTH 25 CTR MINUTES [facility]OSPITAL [facility] - [facility] - 7 7 W INPATIENT [facility] MEDICAL EMERGENCY 10059 [facility] 7 7 RAH[facility] VISIT EMERGENCY HIGH PHYS SEVERITY& THREAT FUNCJ OFFICE 93037 [facility] 7 7 FAMILY T VISIT HEALTH 25 CTR MINUTES OFFICE 56449 [facility] 6 6 FAMILY T VISIT HEALTH 25 CTR MINUTES OFFICE 81074 [facility] 6 6 FAMILY T VISIT HEALTH 15 CTR MINUTES OFFICE 97935 [facility] OUTPATIEN 6 6 [facility] 10 P MINUTES OFFICE 38523 [facility] OUTPATIEN 6 6 FAMILY T VISIT HEALTH 25 CTR MINUTES OFFICE 62814 [facility] 6 6 FAMILY T VISIT HEALTH 25 CTR MINUTES OFFICE 79743 [facility] 6 6 FAMILY T VISIT HEALTH 25 CTR MINUTES
--- OUTSIDE RECORDS SUMMARY | 2017-02-19 19:29 | External Medical Summary Rpt ---
Author Author , GABY GRIFFIN Address Unknown Phone .[employer] Care Team Providers Care Policeman Name Role Phone WILLARD, WILLARD Unavailable Unavailable WILLARD JACQUE, WILLARD Unavailable Unavailable [facility] Un[facility], [facility] AMEENA, AMEENA Unavailable Unavailable [facility] Unavailable Unavailable SERVICES, [facility] Unavailable Unavailable SERVICES, [facility] Unavailable Unavailable HOSPITAL P, [facility], [facility] Unavailable Unavailable [facility] Unavailable Unavailable [facility], [facility] Unavailable Unavailable [facility], [facility] RAUL, RAUL Unavailable Unavailable RAUL, RAUL Unavailable Unavailable [facility], [facility] Unavailable Unavailable [facility], [facility] Unavailable Unavailable [facility]AT, [facility] Unavailable Unavailable MEDICAL, [facility] MONNIG, MONNIG Unavailable Unavailable DAVID, DAVID Unavailable Unavailable DAVID JAM, DAVID Unavailable Unavailable JAM [facility] Unavailable Unavailable [facility], [facility] PAWSAT, PAWSAT Unavailable Unavailable PAWSAT, PAWSAT Unavailable Unavailable PAWSAT [facility], PAWSAT Unavailable Unavailable [facility], Unavailable [facility]available [facility] Unavailable Unavailable EMERGENCY PHYS, [facility] MICHELLE, Unavailable Unavailable MICHELLE ST. 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 M6281 MUSCLE 01-18-2017 [facility] RESPIT[facility] GENERALIZED SERVICES R296 REPEATED 01-18-2017 [facility] SERVICES L0291 CUTANEOUS 01-12-2017 [facility] ABSCESS INTERNAL & UNSPECIFIED PEDIATR R1900 INTRA-ABD & 01-12-2017 [facility] PELVIC INTERNAL & SWELLING PEDIATR MASS & LUMP UNS SITE Z794 CANNON CREWMEMBER 01-12-2017 [facility] CURRENT USE INTERNAL & OF INSULIN PEDIATR E119 TYPE 2 11-04-2016 [facility] WITHOUT COMPLICATIO NS I2699 OTH 11-04-2016 [facility] PULMONARY [facility] & EMBOLISM PEDIATR W/O ACUTE COR PULMONALE I272 OTHER 11-04-2016 [facility] SECONDARY INTERNAL & PULMONARY PEDIATR HYPERTENSIO N P45256 PERSONAL 11-04-2016 [facility] HISTORY OF INTERNAL & PULMONARY PEDIATR EMBOLISM R339 RETENTION 10-28-2016 [facility] P E1122 TYPE 2 10-19-2016 [facility] MELL[facility]US MEDICAL W/DIAB CHRON KIDNEY DZ N390 URINARY 10-19-2016 [facility] INFECTION MEDICAL SITE NOT SPECIFIED [...] 1-4 REHABILITAT CKD OR UNS ION CKD A73768 FOOT DROP 09-25-2016 [facility]OT [facility] ION N183 CHRONIC 09-25-2016 [facility] K[facility] DISEASE REHABILITAT STAGE 3 ION MODERATE R5381 OTHER 09-25-2016 [facility] MALAISE [facility] ION I959 HYPOTENSION 09-22-2016 [facility] UNSPECIFIED ASSOCIAT M7989 OTHER 09-22-2016 [facility] SPECIFIED RADIOLOGY SOFT TISSUE ASSOCIAT DISORDERS R000 TACHYCARDIA 09-22-2016 [facility] UNSPECIFIED ASSOCIAT A4189 OTHER 09-20-2016 [facility] SPECIFIED N EMERGENCY SEPSIS PHYS A419 SEPSIS 09-20-2016 [facility] UNSPECIFIED REGIONAL ORGANISM MEDICAL E875 HYPERKALEMI 09-20-2016 [facility] PH[facility] 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 09-20-2016 [facility] SIS LG RADIOLOGY INTEST W/O ASSOCIAT PERF/ABSC W/O BLEED N179 ACUTE 09-20-2016 [facility] KIDNEY N EMERGENCY FAILURE PHYS UNSPECIFIED R0602 SHORTNESS 09-20-2016 [facility] OF BREATH RADIOLOGY ASSOCIAT R112 NAUSEA WITH 09-20-2016 [facility] VOMITING [facility] UNSPECIFIED ASSOCIAT R410 DISORIENTAT 09-20-2016 [facility] ION RADIOLOG[facility] UNSPECIFIED ASSOCIAT R531 WEAKNESS 09-20-2016 [facility] ASS[facility]IAT R935 ABN FIND DX 09-20-2016 [facility] IMAG OTH RAD[facility]OLOG[facility] ABD REGIONS ASSOCIAT RETROPERITO NEUM D509 IRON 09-11-2016 [facility] UNSPECIFIED 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 E785 HYPERLIPIDE 09-11-2016 [facility] UNSPECIFIED [facility]ALTH CTR I10 ESSENTIAL 08-26-2016 [facility] HYPERTENSIO HEALTH CTR N X97740 CUTANEOUS 08-19-2016 [facility] ABSCESS OF RADIOLOGY ABDOMINAL ASSOCIAT WALL K651 PERITONEAL 07-31-2016 [facility] ABSCESS [facility]IOLOG[facility] ASSOCIAT M1990 UNSPECIFIED 07-30-2016 [facility] [...] MEDICAL LYMPHOMAS M545 LOW BACK 07-22-2016 [facility] 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 [facility] TIETZE R0781 PLEURODYNIA 07-22-2016 [facility] X1434OQ FRACTURE 07-22-2016 [facility] ONE RIB INC RIGHT INITIAL ENCNTR CLOSED FX B351 TINEA 07-16-2016 [facility] UNGUIUM C14530 PAIN IN 07-16-2016 [facility] RIGHT FOOT F93271 PAIN IN 07-16-2016 [facility] LEFT FOOT Q88861 PAIN IN 06-12-2016 [facility] LEFT LOWER INC LEG Z87581 PAIN IN 05-15-2016 [facility] RIGHT KNEE [facility] CTR O29855 PAIN IN 05-15-2016 [facility] LEFT KNEE [facility] R3914 FEELING OF 04-08-2016 [facility] P EMPTYING R5383 OTHER 04-02-2016 [facility] FATIGUE [facility] E1140 TYPE 2 DM 02-27-2016 [facility] WITH PHARMACY DIABETIC #1569 NEUROPATHY UNSPECIFIED 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 T45145 TYPE 2 12-26-2015 [facility] DIABET[facility] MELLITUS [facility]ALTH CTR W/HYPOGLYCE ANKITA W/O COMA Y11132 PAIN IN 12-26-2015 [facility] RIGHT HIP [facility] U58196 OTHER LONG 12-26-2015 [facility]M [facility] CURRENT [facility] CTR DRUG THERAPY Procedures Procedure DOS Code Location Performer Comment CUL BACT 15535 [facility] XCPT 7 [facility] URINE [facility]INGS HOLDINGS BLOOD/STO OL AEROBIC ISOL COMMODE E0165 MEG MEG CHAIR 7 RESPITATO RESPITATO MOBILE/ST RY RY ATIONARY SERVICES SERVICES W/DETACHB LE ARMS CUL BACT 62180 [facility] XCPT 7 [facility] URINE HOLDINGS HOLDINGS BLOOD/STO OL AEROBIC ISOL CUL BACT 73217 [facility] AEROBIC 7 W W ADDL [facility] METHS MEDICAL MEDICAL DEFINITIV E EA ISOL CULTURE 31520 [facility] BACTERIAL 7 W W [facility] QUANTTATI MEDICAL MEDICAL VE COLONY COUNT URINE URNLS DIP 37869 [facility] 7 W W STICK/TAB REGIONAL [facility] LET MEDICAL MEDICAL REAGENT AUTO MICROSCOP Y BASIC 98683 KATHIE VÁZQUEZ METABOLIC 7 W W PANEL [facility] CALCIUM MEDICAL MEDICAL TOTAL COMMODE E0165 MEG MEG CHAIR 7 RESPITATO RESPITATO MOBILE/ST RY RY ATIONARY SERVICES SERVICES W/DETACHB LE ARMS SUSCEPTIB 97867 KATHIE VÁZQUEZ LTY STDY 7 W W ANTIMICRB [facility] IAL MEDICAL MEDICAL MICRO/AGA R [facility] 60896 [facility] 7 PHYSICAL DAY MEDICINE MANAGEMEN AND T 30 MIN/< SBSQ 65272 [place] [address] PHYSICAL CARE/DAY MEDICINE 15 AND MINUTES SBSQ 99064 [facility] 7 CARE/DAY 25 MINUTES SBSQ 74694 [place] [address] PHYSICAL CARE/DAY MEDICINE 25 AND MINUTES SBSQ 82357 [facility] 7 PHYSICAL CARE/DAY MEDICINE 25 AND MINUTES SBSQ 55280 [place] [address] PHYSICAL CARE/DAY MEDICINE 25 AND MINUTES SBSQ 45255 [facility] 7 CARE/DAY 15 MINUTES SBSQ 28287 [facility] 7 CARE/DAY 15 MINUTES SBSQ 83068 [facility] 7 PHYSICAL CARE/DAY MEDICINE 25 AND MINUTES SBSQ 38851 [facility] 7 CARE/DAY 25 MINUTES SBSQ 58743 [facility] 7 CARE/DAY 25 MINUTES SBSQ 61261 [facility] 7 PHYSICAL CARE/DAY MEDICINE 25 AND MINUTES SBSQ 96970 [facility] 7 PHYSICAL CARE/DAY MEDICINE 25 AND MINUTES SBSQ [address]2597 [place] [address] PHYSICAL CARE/DAY MEDICINE 25 AND MINUTES INITIAL 46585 [facility] 7 CARE/DAY 70 MINUTES SBSQ 43418 [place] [address] PHYSICAL CARE/DAY MEDICINE 15 AND MINUTES SBSQ 45854 [facility] 7 PHYSICAL CARE/DAY MEDICINE 25 AND MINUTES HOSPITAL 19994 [facility] DIS[facility]GE 7 W DAY [facility] [address]EN [address] T > 30 MIN INITIAL 51840 [facility] 7 PHYSICAL CARE/DAY MEDICINE 50 AND MINUTES SBSQ 27086 [facility] 7 W CARE/DAY HOSPITALI [address] MINUTES SBSQ 22563 [facility] 7 W CARE/DAY HOSPITALI [address] MINUTES SBSQ 24983 [facility] 7 W CARE/[place] [address] [place] [address] [facility] HEAD/BRAI 7 N W/O RADIOLOGY CONTRAST ASSOCIAT MATERIAL RADIOLOGI 48504 [facility] C 7 EXAMINATI RADIOLOGY ON CHEST ASSOCIAT SING[place] FRONTAL DUP-SCAN 04426 [facility] XTR VEINS 7 COMPLETE RADIOLOGY ASSOCIAT BILATERAL STUDY PULMONARY 08001 [facility] 7 VENTILATI RADIOLOGY ON & ASSOCIAT PERFUSION IMAGING ECHO 01254 [facility] R-T 7 N N 2D W/WOM-MOD E COMPL SPEC&COLR D SBSQ 03582 [facility] 7 W CARE/DAY HOSPITALI [address] MINUTES CRITICAL 74939 [facility] 7 W ILL/INJUR HOSPITALI ED ST PATIENT INIT 30-74 MIN RADIOLOGI 39745 [facility] C 7 EXAMINATI RADIOLOGY RADIOLOGY ON CHEST ASSOCI[place] [address] [facility] ABDOMEN & 7 PELVIS RADIOLOGY RADIOLOGY W/O ASSOCIAT ASSOCIAT CONTRAST MATERIAL ECG 81015 [facility] ROUTINE 7 RAHAT ECG EMERGENCY W/LEAST PHYS 12 LDS I&R ONLY COMMODE E0165 MEG MEG CHAIR 7 RESPITATO RESPITATO MOBILE/ST RY RY ATIONARY SERVICES SERVICES W/DETACHB LE ARMS BLOOD 74331 [facility] COUNT 7 [facility] COMPLETE HOLDINGS HOLDINGS AUTO&AUTO DIFRNTL WBC FEDERALLY G0467 [facility] 7 [facility] [place] [address] CARA HERNANDEZ GLYCOSYLA 7 [facility] DEVICE CTR CLEARED FDA HOME USE COLLECTIO 53178 [facility] N VENOUS 7 [facility] BLOOD HOLDINGS HOLDINGS VENIPUNCT URE COMPREHEN 13971 [facility] SIVE 7 [facility] METABOLIC [place] [address] [facility] IRON 7 MARY MARY HOLDINGS HOLDINGS GLUC BLD 85262 [facility] HERNANDEZ GLUC MNTR 7 [facility] CLEARED CTR FDA SPEC HOME USE BLD GLU A4253 [facility] TEST/REAG 7 PHARMACY PHARMACY T STRIPS #1569 #1569 HOME BLD GLU MON-50 FEDERALLY G0467 [facility] MARROQUIN CO 7 [facility] CTR CTR CENTER VISIT ESTAB PT COMMODE E0165 MEG MEG CHAIR 7 RESPITATO RESPITATO MOBILE/[facility] ATIONLE ROY SERVICES SERVICES W/[place] [address] [facility] ABDOMEN 7 W/O & RADIOLOGY RADIOLOGY W/[place] [address] [facility] ABDOMEN 7 W/CONTRAS RADIOLOGY RADIOLOGY T ASSOCIAT ASSOCIAT MATERIAL IMG-GUIDE 57108 [facility] FLUID 7 COLLXN RADIOLOGY DRAINAG [place] [address] ABDOMEN 7 KODY KODY W/O CONTRAST PHYSICIAN PHYSICIAN MATERIAL S NOVEMBER S NOVEMBER DRAINAGE [id number] YONIDOWROSY [facility] OF LIVER 7 W W [facility] OUS MEDICAL MEDICAL APPROACH FEDERALLY G0467 [facility] 7 [facility] CTR CTR CENTER VISIT ESTAB PT RADEX 73208 RADIOLOGY JESSICA RIBS UNI 7 INC W/POSTERO ANT CH MINIMUM 3 VIEWS DEBRIDEME 39212 [facility] PAWSAT NT NAIL 7 ANY METHOD 6/> BLD GLU A4253 [facility]REAG 7 PHARMACY PHARMACY T STRIPS #1569 #1569 HOME BLD GLU MON-50 RADIOLOGI 87112 [facility] 6 [place] [facility] CTR & FIBULA 2 VIEWS FEDERALLY G0467 [facility] 6 [facility] CTR CTR CENTER VISIT ESTAB PT GLUC BLD 73712 CARA SIMONA HERNANDEZ GLUC MNTR 6 [facility] [employer] CLEARED CTR FDA SPEC HOME USE FEDERALLY G0467 CAR[facility] SIMONA MARROQUIN CO 6 [facility] CTR CTR CENTER VISIT ESTAB PT BLD GLU A4253 [facility] TEST/REAG 6 PHARMACY PHARMACY T STRIPS #1569 #1569 HOME BLD GLU MON-50 URNLS DIP 63342 ALIZE WILLARD [address] [facility] LET RGNT P NON-AUTO W/O MICRSCP COMPREHEN 51612 [facility] SIVE 6 [facility] METABOLIC HOLDINGS HOLDINGS PANEL COLLECTIO 53327 [facility] LAB [facility] N VENOUS 6 [facility] BLOOD HOLDINGS HOLDINGS VENIPUNCT URE GLUC BLD 86367 CARA AJRVIS DAVID GLUC MNTR 6 [facility] [employer] CLEARED CTR FDA SPEC HOME USE HGB 68316 [facility] JARVIS DAVID GLYCOSYLA 6 [facility] [employer] [facility] DEVICE CTR CLEARED FDA HOME USE FEDERALLY G0467 [facility]QU[facility] CO 6 [facility] CTR CTR CENTER VISIT ESTAB PT BLOOD 56346 LAB [facility] LAB [facility] COUNT 6 [facility] M[facility] COMPLETE HOLDINGS HOLDINGS AUTO&AUTO DIFRNTL WBC BLD GLU A4253 [facility]/REAG 6 PHARMACY PHARMACY T STRIPS #1569 #1569 HOME BLD GLU MON-50 GLUC BLD 19049 [facility] JARVIS DAVID GLUC MNTR 6 [facility] [employer] CLEARED CTR FDA SPEC HOME USE COLLECTIO 03270 [facility] LAB [facility] N VENOUS 6 [facility]ARY MARY BLOOD HOLDINGS HOLDINGS VENIPUNCT URE COMPREHEN 38318 [facility] LAB [facility] SIVE 6 [facility] METABOLIC HOLDINGS HOLDINGS PANEL BLOOD 37073 [facility] LAB [facility]IA COUNT 6 [facility] COMPLETE HOLDINGS HOLDINGS AUTO&AUTO DIFRNTL WBC FEDERALLY G0467 [facility] 6 [facility] CTR CTR CENTER VISIT ESTAB PT DEBRIDEME 33918 PA[facility] PAWSAT NT NAIL 6 MAR MAR ANY METHOD 6/> COMPREHEN 01249 [facility] SIVE 6 [facility] METABOLIC HOLDINGS HOLDINGS PANEL BLOOD 33280 [facility] COUNT 6 [facility] COMPLETE HOLDINGS HOLDINGS AUTO&AUTO DIFRNTL WBC GLUC BLD 27955 [facility] DAVID GLUC MNTR 6 [facility]ILY [facility] CLEARED CTR FDA SPEC HOME USE FEDERALLY G0467 [facility] 6 [facility] CTR CTR CENTER VISIT ESTAB PT BLD GLU A4253 [facility] TEST/REAG 6 PHARMACY PHARMACY T STRIPS #1569 #1569 HOME BLD GLU MON-50 Encounters Encounter Start End Date Code Location Performer Type Date OFFICE 16577 [facility] OUTPATIEN [address] T VISIT & 25 PEDIATR MIN[address]ES OFFICE 34388 [facility] OUT[facility] [address] T VISIT & [address]ES [address] [facility] OUTPATIEN [address] T VISIT & 25 PEDIATR MINUTES OFFICE 59219 ALIZE WILLARD OUTPATIEN 7 7 [facility] 10 P MINUTES [facility] ALIZE WILLARD OUTPATIEN 7 7 [facility] 15 P MINUTES [facility]ICE 81355 [facility] OUTPATIEN 7 7 [facility] 30 CLINIC MINUTES [facility] C[facility]AL - 7 7 [facility] INPATIENT REHABILIT ATION EMERGENCY 66368 [facility] DEPT 7 7 RAHAT VISIT EMERGENCY HIGH PHYS SEVERITY& THREAT [facility] KATHIE - 7 7 W INPATIENT [facility] MEDICAL OFFICE 50079 [facility] OUT[facility] 7 7 FAMILY T VISIT HEALTH 15 CTR MINUTES OFFICE 58238 [facility] OUTPATIEN 7 7 FAMILY T VISIT HEALTH 25 CTR MINUTES [facility] 98696 [facility] 7 7 RAHAT VISIT EMERGENCY HIGH PHYS SEVERITY& THREAT [facility] KATHIE 7 7 W INPATIENT [facility] MEDICAL OFFICE 47631 [facility] 7 7 FAMILY T VISIT HEALTH 25 CTR MINUTES OFFICE 10616 [facility] 6 6 FAMILY T VISIT HEALTH 25 CTR MINUTES OFFICE 84934 [facility] 6 6 FAMILY T VISIT HEALTH 15 CTR MINUTES OFFICE 26575 ALIZE WILLARD OUTPATIEN 6 6 [facility] 10 P MINUTES OFFICE 50452 [facility] 6 6 FAMILY T VISIT HEALTH 25 CTR MINUTES OFFICE 22283 [facility] 6 6 FAMILY T VISIT HEALTH 25 CTR MINUTES OFFICE 09751 [facility] 6 6 FAMILY T VISIT HEALTH 25 CTR MINUTES
--- OUTSIDE RECORDS SUMMARY | 2017-02-19 19:29 | External Medical Summary Rpt ---
Author Author , GABY GRIFFIN Address Unknown Phone [email or web address] Care Team Providers Care Airborne Operations Superintendent Name Role Phone WILLARD, WILLARD Unavailable Unavailable WILLARD JACQUE, WILLARD Unavailable Unavailable [facility] Unavailable Un[facility], [facility] AMEENA, AMEENA Unavailable Unavailable [facility] Unavailable Unavailable SERVICES, [facility] Unavailable Unavailable SERVICES, [facility] Unavailable Unavailable HOSPITAL P, [facility], [facility] Unavailable Unavailable [facility] Unavailable Unavailable [facility], [facility] Unavailable Unavailable [facility], [facility] RAUL, RAUL Unavailable Unavailable RAUL, RAUL Unavailable Unavailable [facility] Unavailable Unavailable [facility], [facility] Unavailable Unavailable ASSOC[facility]AT, [facility] Unavailable Unavailable MEDICAL, [facility] MONNIG, MONNIG Unavailable Unavailable DAVID, DAVID Unavailable Unavailable DAVID JAM, DAVID Unavailable Unavailable JAM [facility] Unavailable Unavailable [facility], [facility] PAWSAT, PAWSAT Unavailable Unavailable PAWSAT, PAWSAT Unavailable Unavailable PAWSAT [facility], PAWSAT Unavailable Unavailable [facility], Unavailable [facility], [facility] MICHELLE, Unavailable Unavailable MICHELLE [...] DOS Provider Status 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 [facility] WITH HYPERGLYCEM IA K750 ABSCESS OF 01-26-2017 [facility] LIVER [facility] & PEDIATR Z1883 RETAINED 01-26-2017 [facility] STONE OR INTERNAL & CRYSTALLINE PEDIATR FRAGMENTS Z8719 PERSONAL 01-26-2017 [facility] HISTORY INTER[facility] & OTHER PEDIATR DISEASES DIGESTIVE SYSTEM 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 M6281 MUSCLE 01-18-2017 [facility] GENERALIZED SERVICES R296 REPEATED 01-18-2017 [facility] L0291 CUTANEOUS 01-12-2017 [facility] ABSCESS INTER[facility] & UNSPECIFIED PEDIATR R1900 INTRA-ABD & 01-12-2017 [facility] PELVIC INTERNAL & SWELLING PEDIATR MASS & LUMP UNS SITE 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-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 [facility] 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 INTERNAL & OF INSULIN PEDIATR E119 TYPE 2 11-04-2016 [facility] WITHOUT COMPLICATIO NS I2699 OTH 11-04-2016 [facility] PULMONARY [facility] & EMBOLISM PEDIATR W/O ACUTE COR PULMONALE I272 OTHER 11-04-2016 [facility] SECONDARY [facility] & PULMONARY PEDIATR HYPERTENSIO N K62735 PERSONAL 11-04-2016 [facility] HISTORY OF INTERNAL & PULMONARY PEDIATR EMBOLISM R339 RETENTION 10-28-2016 [facility] P E1122 TYPE 2 10-19-2016 [facility]ICAL W/DIAB CHRON KIDNEY DZ N390 URINARY 10-19-2016 [facility] TRACT [facility] INFECTION MEDICAL SITE NOT SPECIFIED [...] 1-4 REHABILITAT CKD OR UNS ION CKD A08499 FOOT DROP 09-25-2016 [facility] FOOT [facility] ION N183 CHRONIC 09-25-2016 [facility] KIDNEY [facility] DISEASE REHABILITAT STAGE 3 ION MODERATE R5381 OTHER 09-25-2016 [facility] MALAISE [facility] ION I959 HYPOTENSION 09-22-2016 [facility] UNSPECIFIED ASSOCIAT M7989 OTHER 09-22-2016 [facility] SPECIFIED [facility]Y SOFT TISSUE ASSOCIAT DISORDERS R000 TACHYCARDIA 09-22-2016 [facility] UNSPECIFIED ASSOCIAT A4189 OTHER 09-20-2016 [facility] SPECIFIED N EMERGENCY SEPSIS PHYS A419 SEPSIS 09-20-2016 [facility] UNSPECIFIED REGIONAL ORGANISM MEDICAL E875 HYPERKALEMI 09-20-2016 [facility] PH[facility] 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 09-20-2016 [facility] SIS [facility] INTEST W/O ASSOCIAT PERF/ABSC W/O BLEED N179 ACUTE 09-20-2016 [facility] KIDNEY N EMERGENCY FAILURE PHYS UNSPECIFIED R0602 SHORTNESS 09-20-2016 [facility] OF BREATH [facility]IOLOGY ASSOCIAT R112 NAUSEA WITH 09-20-2016 [facility] VOMITING [facility] UNSPECIFIED ASSOCIAT R410 DISORIENTAT 09-20-2016 [facility] ION [facility] UNSPECIFIED ASSOCIAT R531 WEAKNESS 09-20-2016 [facility] R935 ABN FIND DX 09-20-2016 [facility] IMAG OTH [facility] ABD REGIONS ASSOCIAT RETROPERITO NEUM D509 IRON 09-11-2016 [facility] UNSPECIFIED 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 E785 HYPERLIPIDE 09-11-2016 [facility] I10 ESSENTIAL 08-26-2016 [facility]YPERT[facility]O [facility] N S12294 CUTANEOUS 08-19-2016 [facility] ABSCESS OF RADIOLOGY ABDOMINAL ASSOCIAT WALL K651 PERITONEAL 07-31-2016 [facility] ABSCESS [facility] ASSOCIAT M1990 UNSPECIFIED 07-30-2016 [facility] [...] TIETZE R0781 PLEURODYNIA 07-22-2016 [facility] [id number] FRACTURE 07-22-2016 [facility] ONE RIB INC RIGHT INITIAL ENCNTR CLOSED FX B351 TINEA 07-16-2016 [facility] X58108 PAIN IN 07-16-2016 [facility] RIGHT FOOT R96782 PAIN IN 07-16-2016 [facility] LEFT FOOT J31771 PAIN IN 06-12-2016 [facility] LEFT LOWER INC LEG L09853 PAIN IN 05-15-2016 [facility] RIGHT KNEE [facility] D95149 PAIN IN 05-15-2016 [facility] LEFT KNEE [facility] R3914 FEELING OF 04-08-2016 [facility] P EMPTYING R5383 OTHER 04-02-2016 [facility] FATIGUE [facility] E1140 TYPE 2 DM 02-27-2016 [facility] WITH PHARMACY DIABETIC #1569 NEUROPATHY UNSPECIFIED 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 Y11269 TYPE 2 12-26-2015 [facility] DIABETES [facility]LL[facility]US [facility] CTR W/HYPOGLYCE ANKITA W/O COMA R18469 PAIN IN 12-26-2015 [facility] RIGHT HIP [facility] F34502 OTHER LONG 12-26-2015 [facility] DRUG THERAPY Procedures Procedure DOS Code Location Performer Comment CUL BACT 77632 [facility] XCPT 7 [facility] URINE [facility] HOLDINGS BLOOD/STO OL AEROBIC ISOL COMMODE E0165 [facility]G [facility]G CHAIR 7 RESPITATO RESPITATO MOBILE/ST RY RY ATIONARY SERVICES SERVICES W/DETACHB LE ARMS CUL BACT 11983 [facility] XCPT 7 MARY MARY URINE HOLDINGS HOLDINGS BLOOD/STO OL AEROBIC ISOL CUL BACT 43499 [facility] AEROB[facility] 7 W W ADDL [facility] METHS MEDICAL MEDICAL DEFINITIV E EA ISOL CULTURE 18097 [facility] BACTERIAL 7 W W [facility] QUANTTATI MEDICAL MEDICAL VE COLONY COUNT URINE URNLS DIP 16894 [facility] 7 W W STICK/TAB [facility] LET MEDICAL MEDICAL REAGENT AUTO MICROSCOP Y BASIC 36418 KATHIE VÁZQUEZ METABOLIC 7 W W PANEL [facility] CALCIUM MEDICAL MEDICAL TOTAL COMMODE E0165 MEG MEG CHAIR 7 RESPITATO RESPITATO MOBILE/ST RY RY ATIONARY SERVICES SERVICES W/DETACHB LE ARMS SUSCEPTIB 47820 KATHIE VÁZQUEZ LTY STDY 7 W W ANTIMICRB [facility] IAL MEDICAL MEDICAL MICRO/AGA R NEA [facility] 39295 [facility] 7 PHYSICAL DAY MEDICINE MANAGEMEN AND T 30 MIN/< SBSQ 75656 [place] [address] PHYSICAL CARE/DAY MEDICINE 15 AND MINUTES SBSQ 19888 [facility] 7 CARE/DAY 25 MINUTES SBSQ 96206 [place] [address] PHYSICAL CARE/DAY MEDICINE 25 AND MINUTES SBSQ 60657 [facility] 7 PHYSICAL CARE/DAY MEDICINE 25 AND MINUTES SBSQ 35322 [place] [address] PHYSICAL CARE/DAY MEDICINE 25 AND MINUTES SBSQ 26882 [facility] 7 CARE/DAY 15 MINUTES SBSQ 66634 [facility] 7 CARE/DAY 15 MINUTES SBSQ 65324 [facility] 7 PHYSICAL CARE/DAY MEDICINE 25 AND MINUTES SBSQ 54107 [facility] 7 CARE/DAY 25 MINUTES SBSQ 61772 [facility] 7 CARE/DAY 25 MINUTES SBSQ 30594 [facility] 7 PHYSICAL CARE/DAY MEDICINE 25 AND MINUTES SBSQ 13781 [facility] 7 PHYSICAL CARE/DAY MEDICINE 25 AND MINUTES SBSQ 98997 [place] [address] PHYSICAL CARE/DAY MEDICINE 25 AND MINUTES INITIAL 74344 [facility] 7 CARE/DAY 70 MINUTES SBSQ 33207 [place] [address] PHYSICAL CARE/DAY MEDICINE 15 AND MINUTES SBSQ 92885 [facility] 7 PHYSICAL CARE/DAY MEDICINE 25 AND MINUTES HOSPITAL 04981 [facility] 7 W [address] T > 30 MIN INITIAL 64348 [facility] 7 PHYSICAL CARE/DAY MEDICINE 50 AND MINUTES SBSQ 33231 [facility] 7 W CARE/DAY HOSPITALI [address] MINUTES SBSQ 50767 [facility] 7 W CARE/DAY HOSPITALI [address] MINUTES SBSQ 50056 [facility] 7 W CARE/[place] [address] [place] [address] [facility] HEAD/BRAI 7 N W/O RADIOLOGY CONTRAST ASSOCIAT MATERIAL RADIOLOGI 37658 [facility] C 7 EXAMINATI RADIOLOGY ON CHEST ASSOCIAT SINGLE [place]IEW FRONTAL DUP-SCAN 48022 [facility] XTR VEINS 7 COMPLETE RADIOLOGY ASSOCIAT BILATERAL STUDY PULMONARY 27141 [facility] 7 VENTILATI RADIOLOGY ON & ASSOCIAT PERFUSION IMAGING ECHO 12222 [facility] R-T 7 N N 2D W/WOM-MOD E COMPL SPEC&COLR D SBSQ 22804 [facility] 7 W CARE/DAY HOSPITALI [address] MINUTES CRITICAL 86790 [facility] 7 W ILL/INJUR HOSPITALI ED ST PATIENT INIT 30-74 MIN RADIOLOGI 90732 [facility] C 7 EXAMINATI RADIOLOGY RADIOLOGY ON CHEST ASSOCI[place] [address] [facility] ABDOMEN & 7 PELVIS RADIOLOGY RADIOLOGY W/O ASSOCIAT ASSOCIAT CONTRAST MATERIAL ECG 07261 [facility] ROUTINE 7 RAHAT ECG EMERGENCY W/LEAST PHYS 12 LDS I&R ONLY COMMODE E0165 MEG MEG CHAIR 7 RESPITATO RESPITATO MOBILE/ST RY RY ATIONARY SERVICES SERVICES W/DETACHB LE ARMS BLOOD 04645 [facility] COUNT 7 MARY MARY COMPLETE HOLDINGS HOLDINGS AUTO&AUTO DIFRNTL WBC FEDERALLY G0467 [facility] 7 [facility] [place]ENTER [place] H[place] [address] [facility] HERNANDEZ GLYCOSYLA 7 [facility] [employer] DEVICE CTR CLEARED FDA HOME USE COLLECTIO 20796 [facility] N VENOUS 7 MARY MARY BLOOD HOLDINGS HOLDINGS VENIPUNCT URE COMPREHEN 90297 [facility] SIVE 7 MARY MARY METABOLIC [place] [address] [facility] IRON 7 MARY MARY HOLDINGS HOLDINGS GLUC BLD 12427 [facility] HERNANDEZ GLUC MNTR 7 [facility] [employer] CLEARED CTR FDA SPEC HOME USE BLD GLU A4253 [facility] TEST/REAG 7 PHARMACY PHARMACY T STRIPS #1569 #1569 HOME BLD GLU MON-50 FEDERALLY G0467 [facility]ARROQU[facility] CO 7 [facility] CTR CENTER VISIT ESTAB PT COMMODE E0165 MEG MEG CHAIR 7 RESPITATO RESPITATO MOBILE/ST [facility] [employer] [place] SERVICES SERVICES W/[place] [address] [facility] ABDOMEN 7 W/O & RADIOLOGY RADIOLOGY W/[place] [address] [facility] ABDOMEN 7 W/CONTRAS RADIOLOGY RADIOLOGY T ASSOCIAT ASSOCIAT MATERIAL IMG-GUIDE 36745 [facility] FLUID 7 COLLXN RADIOLOGY DRAINAG [place] [address] ABDOMEN 7 KODY KODY W/O CONTRAST PHYSICIAN PHYSICIAN MATERIAL S NOVEMBER S NOVEMBER DRAINAGE [id number] YONIDOWROSY [facility] OF LIVER 7 W W PERCUTANE [facility] OUS MEDICAL MEDICAL APPROACH FEDERALLY G0467 [facility] 7 [facility] CTR CENTER VISIT ESTAB PT RADEX 85489 RADIOLOGY JESSICA RIBS UNI 7 INC W/POSTERO ANT CH MINIMUM 3 VIEWS DEBRIDEME 50618 [facility] PAWSAT NT NAIL 7 ANY METHOD 6/> BLD GLU A4253 [facility]REAG 7 PHARMACY PHARMACY T STRIPS #1569 #1569 HOME BLD GLU MON-50 RADIOLOGI 09006 CAR[facility] Lo 6 [employer] TIBIA CTR & FIBULA 2 VIEWS FEDERALLY G0467 [facility] 6 [facility] CTR CENTER VISIT ESTAB PT GLUC BLD 81551 CARA SIMONA HERNANDEZ GLUC MNTR 6 [facility] [employer] CLEARED CTR FDA SPEC HOME USE FEDERALLY G0467 CARA SIMONA MARROQUIN CO 6 [facility] CTR CENTER VISIT ESTAB PT BLD GLU A4253 [facility] TEST/REAG 6 PHARMACY PHARMACY T STRIPS #1569 #1569 HOME BLD GLU MON-50 URNLS DIP 98234 ALIZE WILLARD 6 [facility] LET RGNT P NON-AUTO W/O MICRSCP COMPREHEN 97635 [facility] SIVE 6 [facility] METABOLIC HOLDINGS HOLDINGS PANEL COLLECTIO 50580 [facility] N VENOUS 6 MARY MARY BLOOD HOLDINGS HOLDINGS VENIPUNCT URE GLUC BLD 58874 [facility] JARVIS DAVID GLUC MNTR 6 [facility] [employer] CLEARED CTR FDA SPEC HOME USE HGB 33869 [facility] DAVID GLYCOSYLA 6 [facility] alike [facility] CTR CLEARED FDA HOME USE FEDERALLY G0467 [facility] 6 [facility] CTR CENTER VISIT ESTAB PT BLOOD 86173 [facility] COUNT 6 MARY MARY COMPLETE HOLDINGS HOLDINGS AUTO&AUTO DIFRNTL WBC BLD GLU A4253 [facility] TEST/REAG 6 PHARMACY PHARMACY T STRIPS #1569 #1569 HOME BLD GLU MON-50 GLUC BLD 14751 [facility]VIS DAVID GLUC MNTR 6 [facility] [employer] CLEARED CTR FDA SPEC HOME USE COLLECTIO 96144 [facility] L[facility] N VENOUS 6 MARY MARY BLOOD HOLDINGS HOLDINGS VENIPUNCT URE COMPREHEN 08166 [facility] SIVE 6 [facility] METABOLIC HOLDINGS HOLDINGS PANEL BLOOD 04330 [facility] COUNT 6 MARY MARY COMPLETE HOLDINGS HOLDINGS AUTO&AUTO DIFRNTL WBC FEDERALLY G0467 [facility] 6 [facility] CTR CENTER VISIT ESTAB PT DEBRIDEME 06745 PA[facility] PAWSAT NT NAIL 6 MAR MAR ANY METHOD 6/> COMPREHEN 36022 [facility] SIVE 6 [facility] METABOLIC HOLDINGS HOLDINGS PANEL BLOOD 95806 [facility] COUNT 6 [facility]ARY COMPLETE HOLDINGS HOLDINGS AUTO&AUTO DIFRNTL WBC GLUC BLD 68547 [facility] DAVID GLUC MNTR 6 FAMILY [facility] CLEARED CTR FDA SPEC HOME USE FEDERALLY G0467 [facility] 6 [facility] CTR CENTER VISIT ESTAB PT BLD GLU A4253 [facility] TEST/REAG 6 PHARMACY PHARMACY T STRIPS #1569 #1569 HOME BLD GLU MON-50 Encounters Encounter Start End Date Code Location Performer Type Date OFFICE 29145 [facility] [address] T VISIT & 25 PEDIATR MINUTES OFFICE 40593 [facility] [address] T VISIT & 25 PEDIATR MINUTES OFFICE 34226 [facility] [address] T VISIT & 25 PEDIATR MINUTES OFFICE 26342 AL[facility] WILLARD OUTPATIEN 7 7 [facility] 10 P MINUTES [facility]OSPITAL KATHIE - 7 7 [facility] 19938 AL[facility] WILLARD OUTPATIEN 7 7 [facility] 15 P MINUTES OFFICE [address] [facility] OUTPATIEN 7 7 [facility] 30 CLINIC MINUTES [facility] - 7 7 [facility]PATIENT [facility] ATION EMERGENCY 75943 [facility] DEPT 7 7 RAHAT VISIT EMERGENCY HIGH PHYS SEVERITY& THREAT [facility] KATHIE - 7 7 W [facility]IENT [facility] OFF[facility] 65036 [facility] OUTPATIEN 7 7 FAMILY T VISIT HEALTH 15 CTR MINUTES OFFICE 74644 [facility] OUTPATIEN 7 7 FAMILY T VISIT HEALTH 25 CTR MINUTES [facility] KATHIE 7 7 [facility] 38949 [facility] 7 7 RAHAT VISIT EMERGENCY HIGH PHYS SEVERITY& THREAT [facility] KATHIE 7 7 W [facility] OFF[facility] 55997 [facility] OUTPATI[facility] 7 7 FAMILY T VISIT HEALTH 25 CTR MINUTES OFFICE 96648 [facility] 6 6 FAMILY T VISIT HEALTH 25 CTR MINUTES OFFICE 77704 [facility] 6 6 FAMILY T VISIT HEALTH 15 CTR MINUTES OFFICE 46879 ALIZE WILLARD OUTPATIEN 6 6 [facility] 10 P MINUTES OFFICE 66484 [facility] OUT[facility] 6 6 FAMILY T VISIT HEALTH 25 CTR MINUTES OFFICE 32551 [facility] 6 6 FAMILY T VISIT HEALTH 25 CTR MINUTES OFFICE 45950 [facility] 6 6 FAMILY T VISIT HEALTH 25 CTR MINUTES
--- OUTSIDE RECORDS SUMMARY | 2017-02-19 19:29 | External Medical Summary Rpt ---
Author Author GARCIAANTONIA Lindsey, GABY ID [employer] Organization [employer] Address Unknown Phone Unavailable Payers Section Payer Plan Name Group ID Member ID Coverage Coverage Start End Date Date [place] 2073 [id number] No No Gov A informati informati Services on in on in Medicare source source data data AARP 1569 [id number] No No 12 informati informati on in on in source source data data Results CT ABDOMEN WO CONTRAST Observa Value Referen Units Interpr Notes Date tion ce etation Range EXAMINA No No No No Jul 30 TION: informa informa informa informa 2016 CT of tion in tion in tion in tion in 11:13 the source source source source AM Abdomen data data data data Without Contras t Dated 017.\\.b r\\CLINI NAHOMI HISTORY : Right upper quadran t abdomin al pain with history of\\.br\\ choledo cholith iasis.\\ .br\\\\.b r\\BISI RISON: CT of the abdomen and pelvis dated 016.\\.b r\\\\.br\\ TECHNIQ UE: Multipl e axial images through the abdomen were obtaine d\\.br\\f ollowin g adminis tration of enteric contras t only. This data was used to\\.br\\ perform coronal reconst ruction s. Patient exposur e is reduced by\\.br\\ "automa kinjal exposur e control " wheneve r possibl e on CT examina tions. When\\.b r\\that techniq ue is not availab le, patient exposur e is reduced by adjusti ng\\.br\\ the mA and/or kV accordi ng to patient 's size.\\. br\\\\.br \\FINDIN GS: There are mild depende nt atelect atic changes in the right\\. br\\lung base. The visuali zed left lung base is clear. The heart is normal in\\.br\\ size with dense coronar y artery calcifi cations . There are advance d\\.br\\d egenera tive changes at L5-S1 and moderat e degener ative changes through out\\.br \\the remaind er of the visuali zed spine. 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 br\\\\.br \\Intra- abdomin ally, evaluat ion for a subtle lesion of the solid organs is\\.br\\ limited due to lack of intrave nous contras t. Along the posteri or inferio r\\.br\\m argin of the liver, there is a 5.7 x 9.2 x 7.2-cm collect ion of fluid and\\.br \\air compati ble with an abscess . There is a 1-cm lesion within this\\.b r\\colle ction which demonst rates periphe ral hyperde nsity and central air\\.br \\densit y, concern ing for a dropped gallsto ne or fecalit h. The patient is\\.br\\ status post cholecy stectom y. The prior choledo cholith iasis and biliary \\.br\\di latatio n has resolve d.\\.br\\ \\.br\\Wi thin the inferio r pole of the left kidney, there is a 3.7-cm cyst, not\\.br \\signif icantly changed . There is a stable parapel en cyst in the mid pole\\.b r\\of the left kidney. The spleen, pancrea s, adrenal glands, and right kidney\\ .br\\are within normal limits. The aorta is normal in caliber . There is dense\\. br\\calc ificati on of the origin of the left renal artery. \\.br\\\\. br\\Ther e is a 3.6 x 2.3-cm diverti culum of the proxima l third portion of the\\.br \\duoden um. There is mild diverti culosis of the left colon without evidenc e\\.br\\o f diverti culitis . There is no small bowel obstruc tion. There is no\\.br\\ patholo gic adenopa thy within the visuali zed abdomen .\\.br\\\\ .br\\IMP RESSION :\\.br\\1 . 5.7 x 9.2 x 7.2-cm abscess along the posteri or inferio r margin of the\\.br \\liver, likely subcaps ular, as opposed to a true hepatic abscess . There is\\.br\\ an equivoc al dropped gallsto ne versus fecalit h within this collect ion.\\.b r\\2. Status post cholecy stectom y with interva l resolut ion of prior\\. br\\chol edochol ithiasi s.\\.br\\ \\.br\\I attempt ed to contact Dr. Isaias Kaminski with these finding s at 5:30 p.m.\\.b r\\and 5:45 p.m. on 017. The patient 's daughte r was reached at\\.br\\ approxi mately 6 pm, and instruc kinjal to bring the patient to the [facility]\\.br\\ Room at [facility].\\. br\\\\.br \\Antoine juárez MD. CT ABDOMEN PELVIS W WO CONTRAST Observa Value Referen Units Interpr Notes Date tion ce etation Range EXAMINA No No No No Jul 31 TION: informa informa informa informa 2016 CT tion in tion in tion in tion in 11:53 Abdomen source source source source AM and data data data data Pelvis With and Without Contras t Dated\\. br\\07/13. \\.br\\CL INICAL HISTORY : Right lower quadran t abdomin al pain.\\. br\\\\.br \\COMPAR JONATHAN: None.\\. br\\\\.br \\TECHNI QUE: Routine pre and post contras t imaging of the abdomen as\\.br\\ well as post contras t imaging of the pelvis was perform ed followi ng\\.br\\ adminis tration of enteric contras t. This data was used to perform coronal \\.br\\re constru ctions. \\.br\\\\. br\\FIND INGS: There is a calcifi ed nodule in the left lower lobe. The\\.br \\visual ized right lung base is clear. The heart is normal in size with\\.b r\\dense coronar y artery calcifi cations . There are moderat e to advance d\\.br\\m ultilev el degener ative changes of the visuali zed spine, most promine nt at\\.br\\ L5-S1. No suspici ous osseous lesion is identif ied.\\.b r\\\\.br\\ There are several calcifi ed stones within the gallbla dder. The\\.br \\gallbl adder is small with apparen t wall thicken ing. There is subtle\\ .br\\ind uration of the pericho lecysti c fat and acute cholecy stitis cannot be\\.br\\ exclude d. The common bile duct is normal in caliber for patient 's age\\.br \\measur ing 7-mm. However , there are two stones within the distal CBD with\\.b r\\the more inferio r measuri ng 6-mm and the more superio r measuri ng 4-mm.\\. br\\Ther e is mild intrahe patic biliary dilatat ion.\\.b r\\\\.br\\ There is a 3.2 x 3.3-cm cyst project ing from the inferio r pole of the left\\.b r\\kidne y. There is a 0.6-cm low density lesion in the mid pole of the left\\.b r\\kidne y and a 0.8-cm low density lesion in the mid pole of the right\\. br\\kidn ey, too small to charact erize. The liver, spleen, pancrea s, and\\.br \\adrena l glands are within normal limits. The aorta is mildly calcifi ed\\.br\\ without aneurys m. There are two right renal arterie s with dense\\. br\\calc ificati on of the origin of the more inferio r renal artery. \\.br\\\\. br\\Ther e is a 3.3 x 3.6-cm diverti culum project ing mediall y from the second\\ .br\\por tion of the duodenu m in the region of the papilla . The appendi x is\\.br\\ normal. There is promine nt diverti culosis of the left colon without \\.br\\ev idence of diverti culitis . There is no small bowel obstruc tion. There\\. br\\is no adenopa thy or ascites in the abdomen or pelvis. Within the pelvis, \\.br\\th e prostat e is enlarge d measuri ng 6.4 x 5.8 x 6.1-cm. The bladder and\\.br \\rectum are unremar kable. There are small bilater al direct fat contain ing\\.br \\inguin al hernias .\\.br\\\\ .br\\IMP RESSION :\\.br\\1 . Two calcifi ed stones within the distal CBD with mild intrahe patic\\. br\\bili pilar dilatat ion.\\.b r\\2. Choleli thiasis with equivoc al acute cholecy stitis. \\.br\\3. Enlarge d prostat e.\\.br\\ 4. Left colonic diverti culosis .\\.br\\\\ .br\\Molly juárez MD.
--- OUTSIDE RECORDS SUMMARY | 2017-02-19 19:29 | External Medical Summary Rpt ---
Author Author GARCIAANTONIA Lindsey, [employer] Organization [employer] Address Unknown Phone Unavailable Payers Section Payer Plan Name Group ID Member ID Coverage Coverage Start End Date Date Wray 2073 [id number] No No Gov A informati informati Services on in on in Medicare source source data data AARP [id number] No No 12 informati informati on in [...] patient to the Emergen [email or web address]\\[email or web address]\\ Room at [facility].\\. br\\\\.br \\Antoine juárez MD. CT ABDOMEN PELVIS [...]
--- OUTSIDE RECORDS SUMMARY | 2017-02-19 19:29 | External Medical Summary Rpt ---
Author Author , GABY GRIFFIN Address Unknown Phone Immunization Name Date Rout CVX Reac Dose Comm Prov Is Faci e tion ent ider Refu lity Give sed n Infl 10-1 88 999 Hist FQ11 No FQ11 uenz 1-20 oric a, 13 al UF Info rmat ion - Sour ce Unsp ecif ied Infl 10-1 140 999 Hist FQ11 No FQ11 uenz 1-20 oric a, 12 al P-Fr Info ee rmat ion - Sour ce Unsp ecif ied Td 03-0 9 999 Hist H112 No H112 (suhas 6-19 oric lt), 97 al Info adso rmat rbed ion - Sour ce Unsp ecif ied
--- OUTSIDE RECORDS SUMMARY | 2017-02-19 19:29 | External Medical Summary Rpt ---
Author Author , GABY GRIFFIN Address Unknown Phone [email or web address] Immunization Name Date Rout CVX Reac Dose [...]
--- OUTSIDE RECORDS SUMMARY | 2017-02-19 20:12 | External Medical Summary Rpt ---
Author Author , GABY GRIFFIN Address Unknown Phone [email or web address] Care Team Providers Care Hydrogenation Operator Name Role Phone WILLARD, WILLARD Unavailable Unavailable WILLARD JACQUE, WILLARD Unavailable Unavailable [facility], [facility] AMEENA, AMEENA Unavailable Unavailable [facility] Unavailable Unavailable SERVICES, [facility] Unavailable Unavailable SERVICES[facility] Unavailable Unavailable H[facility]PITAL P, [facility], [facility] Unavailable Unavailable [facility] Unavailable Unavailable [facility], [facility] Unavailable Unavailable [facility], [facility] RAUL, RAUL Unavailable Unavailable RAUL, RAUL Unavailable Unavailable [facility], [facility] Unavailable Unavailable [facility], [facility] Unavailable Unavailable [facility], [facility] Unavailable Unavailable MEDICAL, [facility] MONNIG, MONNIG Unavailable Unavailable DAVID, DAVID Unavailable Unavailable DAVID JAM, DAVID Unavailable Unavailable [facility] Unavailable Unavailable [facility], [facility] PAWSAT, PAWSAT Unavailable Unavailable [facility], PAWSAT Unavailable Unavailable [facility], PAWSAT Unavailable Unavailable [facility], Unavailable [facility]available [facility] Unavailable Unavailable EMERGENCY [facility], [facility] MICHELLE, Unavailable Unavailable [...] DOS Provider Status 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 [facility] INTER[facility] & [facility] WITH HYPERGLYCEM IA K750 ABSCESS OF 01-26-2017 [facility] LIVER INTERNAL & PEDIATR Z1883 RETAINED 01-26-2017 [facility] STONE OR INTERNAL & CRYSTALLINE PEDIATR FRAGMENTS Z8719 PERSONAL 01-26-2017 [facility] HISTORY INTERNAL & OTHER PEDIATR DISEASES DIGESTIVE SYSTEM 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 M6281 MUSCLE 01-18-2017 [facility] RESPITATORY GENERALIZED SERVICES R296 REPEATED 01-18-2017 [facility] SERVICES L0291 CUTANEOUS 01-12-2017 [facility] ABSCESS INTERNAL & UNSPECIFIED PEDIATR R1900 INTRA-ABD & 01-12-2017 [facility] PELVIC INTERNAL & SWELLING PEDIATR MASS & LUMP UNS SITE Z794 SHELTER 01-12-2017 [facility] CURRENT USE INTERNAL & OF INSULIN PEDIATR E119 TYPE 2 11-04-2016 [facility] WITHOUT COMPLICATIO NS I2699 OTH 11-04-2016 [facility] PULMONARY INTER[facility] & EMBOLISM PEDIATR W/O ACUTE COR PULMONALE I272 OTHER 11-04-2016 [facility] SECONDARY INTERNAL & PULMONARY PEDIATR HYPERTENSIO N A75417 PERSONAL 11-04-2016 [facility] HISTORY OF INTERNAL & PULMONARY PEDIATR EMBOLISM R339 RETENTION 10-28-2016 [facility] P E1122 TYPE 2 10-19-2016 [facility] MELL[facility]US MEDICAL W/DIAB CHRON KIDNEY DZ N390 URINARY 10-19-2016 [facility] TRACT REGIONAL INFECTION MEDICAL SITE NOT SPECIFIED [...] 1-4 REHABILITAT CKD OR UNS ION CKD U97368 FOOT DROP 09-25-2016 [facility] FOOT [facility] RE[facility]AB[facility] ION N183 CHRONIC 09-25-2016 [facility] DISEASE REHABILITAT STAGE 3 ION MODERATE R5381 OTHER 09-25-2016 [facility] ION I959 HYPOTENSION 09-22-2016 [facility] UNSPECIFIED ASSOCIAT M7989 OTHER 09-22-2016 [facility] SPECIFIED RADIOLOGY SOFT TISSUE ASSOCIAT DISORDERS R000 TACHYCARDIA 09-22-2016 [facility] UNSPECIFIED ASSOCIAT A4189 OTHER 09-20-2016 [facility] SPECIFIED N EMERGENCY SEPSIS PHYS A419 SEPSIS 09-20-2016 [facility] UNSPECIFIED REGIONAL ORGANISM MEDICAL E875 HYPERKALEMI 09-20-2016 [facility] PH[facility] 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 09-20-2016 [facility] SIS LG RADIOLOGY INTEST W/O ASSOCIAT PERF/ABSC W/O BLEED N179 ACUTE 09-20-2016 [facility] KIDNEY N EMERGENCY FAILURE PHYS UNSPECIFIED R0602 SHORTNESS 09-20-2016 [facility] OF BREATH RADIOLOGY ASSOCIAT R112 NAUSEA WITH 09-20-2016 [facility] VOMITING [facility] UNSPECIFIED ASSOCIAT R410 DISORIENTAT 09-20-2016 [facility] ION RADIOLOG[facility] UNSPECIFIED ASSOCIAT R531 WEAKNESS 09-20-2016 [facility] ASS[facility]AT R935 ABN FIND DX 09-20-2016 [facility] IMAG OTH RADIOLOGY ABD REGIONS ASSOCIAT RETROPERITO NEUM D509 IRON 09-11-2016 [facility] UNSPECIFIED 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 E785 HYPERLIPIDE 09-11-2016 [facility] UNSPECIFIED HEALTH CTR I10 ESSENTIAL 08-26-2016 [facility]IMARY [facility] HYPERTENSIO HEALTH CTR N X67296 CUTANEOUS 08-19-2016 [facility] ABSCESS OF RADIOLOGY ABDOMINAL ASSOCIAT WALL K651 PERITONEAL 07-31-2016 [facility] ABSCESS RADIOLOGY ASSOCIAT M1990 UNSPECIFIED 07-30-2016 [facility] [...] LOW BACK 07-22-2016 [facility] 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 CTR [id number] FRACTURE 07-22-2016 [facility] ONE RIB INC RIGHT INITIAL ENCNTR CLOSED FX B351 TINEA 07-16-2016 [facility] UNGUIUM W87786 PAIN IN 07-16-2016 [facility] RIGHT FOOT U30184 PAIN IN 07-16-2016 [facility] LEFT FOOT N71645 PAIN IN 06-12-2016 [facility] LEFT LOWER INC LEG W78385 PAIN IN 05-15-2016 [facility] RIGHT KNEE [facility] Y66706 PAIN IN 05-15-2016 [facility] LEFT KNEE [facility] R3914 FEELING OF 04-08-2016 [facility] P EMPTYING R5383 OTHER 04-02-2016 [facility]IGUE [facility] E1140 TYPE 2 DM 02-27-2016 [facility] WITH PHARMACY DIABETIC #1569 NEUROPATHY UNSPECIFIED 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 CTR W/HYPOGLYCE ANKITA W/O COMA A60537 PAIN IN 12-26-2015 [facility] RIGHT HIP [facility] E39472 OTHER LONG 12-26-2015 [facility] TERM [facility] CURRENT HEALTH CTR DRUG THERAPY R07.9 CHEST PAIN, UNSPECIFIED Allergies, Adverse Reactions, Alerts Clinical Alert Notifications Alert Diabetes: no eye exam in the last 365 days Diabetes: no influenza vaccine in the last 365 days Diabetes: no lipid panel in the last 365 days Member has >/= 3 hosp admit & >/= 1 ED visit in 365 days Procedures Procedure DOS Code Location Performer Comment CUL BACT 10087 [facility] XCPT 7 [facility] URINE [facility] HOLDINGS BLOOD/STO OL AEROBIC ISOL COMMODE E0165 MEG MEG CHAIR 7 RESPITATO RESPITATO MOBILE/ST RY RY ATIONARY SERVICES SERVICES W/DETACHB LE ARMS CUL BACT 46068 [facility] XCPT 7 [facility] URINE HOLDINGS HOLDINGS BLOOD/STO OL AEROBIC ISOL CUL BACT 24741 [facility] AEROBIC 7 W W ADDL [facility] METHS MEDICAL MEDICAL DEFINITIV E EA ISOL CULTURE 07057 KATHIE VÁZQUEZ BACTERIAL 7 W W [facility] QUANTTATI MEDICAL MEDICAL VE COLONY COUNT URINE BASIC 37141 KATHIE VÁZQUEZ METABOLIC 7 W W PANEL [facility] CALCIUM MEDICAL MEDICAL TOTAL SUSCEPTIB 03148 KATHIE VÁZQUEZ LTY STDY 7 W W ANTIMICRB [facility] IAL MEDICAL MEDICAL MICRO/AGA R DILUTJ URNLS DIP 58264 PRAMODWROSY BENAVIDEZWROSY 7 W W STICK/TAB REGIONAL [facility] LET [facility] MEDICAL REAGENT AUTO MICROSCOP Y COMMODE E0165 MEG MEG CHAIR 7 RESPITATO RESPITATO MOBILE/[facility] PO[facility] ATMOBILE [facility] SERVICES SERVICES W/DETACHB [facility] [address] [place] [address] PHYSICAL DAY MEDICINE MANAGEMEN AND T 30 MIN/< SBSQ 56941 [place] [address] PHYSICAL CARE/DAY MEDICINE 15 AND MINUTES SBSQ 69335 [facility] 7 CARE/DAY 25 MINUTES SBSQ 34782 [place] [address] PHYSICAL CARE/DAY MEDICINE 25 AND MINUTES SBSQ 66624 [place] [address] PHYSICAL CARE/DAY MEDICINE 25 AND MINUTES SBSQ 98894 [place] [address] PHYSICAL CARE/DAY MEDICINE 25 [address] MIN[address]ES SBSQ [address] [facility] 7 CARE/DAY [address]ES SBSQ [address] [facility] 7 CARE/DAY 15 MINUTES SBSQ 08383 [place] [address] PHYSICAL CARE/DAY MEDICINE 25 AND MINUTES SBSQ 63371 [facility] 7 CARE/DAY 25 MINUTES SBSQ 84145 [facility] 7 CARE/DAY 25 MINUTES SBSQ 30079 [place] [address] PHYSICAL CARE/DAY MEDICINE 25 AND MINUTES SBSQ 08873 [place] [address] PHYSICAL CARE/DAY MEDICINE 25 AND MINUTES SBSQ 55684 [place] [address] PHYSICAL CARE/DAY MEDICINE 25 AND MINUTES INITIAL 52361 [facility] 7 CARE/DAY 70 MINUTES SBSQ 75122 [place] [address] PHYSICAL CARE/DAY MEDICINE 15 AND MINUTES SBSQ 75663 [place] [address] PHYSICAL CARE/DAY MEDICINE 25 AND MINUTES INITIAL 49622 [place] [address] PHYSICAL CARE/DAY MEDICINE 50 AND MINUTES HOSPITAL 12582 [facility] 7 W [address]EN [address] T > [address] [facility] 7 W CARE/DAY HOSPITALI [address] [facility] 7 W CARE/DAY HOSPITALI [address] [facility] 7 W CARE/DAY HOSPITALI [address] MINUTES ECHO 85386 [facility] TTHRC R-T 7 N N 2D W/WOM-MOD E COMPL SPEC&COLR D PULMONARY 20085 [facility] 7 VENTILATI RADIOLOGY ON & [place] [address] [facility] HEAD/BRAI 7 N W/O RADIOLOGY CONTRAST ASSOCIAT MATERIAL RADIOLOGI 56569 [facility] C 7 EXAMINATI RADIOLOGY ON CHEST ASSOCIAT SINGLE VIEW FRONTAL DUP-SCAN 49791 [facility] XTR VEINS 7 COMPLETE RADIOLOGY ASSOCIAT BILATERAL STUDY SBSQ 90280 [facility] 7 W CARE/DAY HOSPITALI [address] MINUTES RADIOLOGI 63293 [facility] C 7 EXAMINATI RADIOLOGY RADIOLOGY ON CHEST ASSOCIAT ASSOCIAT SINGLE VIEW FRONTAL ECG 20599 [facility] ROUTINE 7 RAHAT ECG EMERGENCY W/LEAST PHYS 12 LDS I&[place] [address] [facility] ABDOMEN & 7 PELVIS RADIOLOGY RADIOLOGY W/O ASSOCIAT ASSOCIAT CONTRAST MATERIAL CRITICAL 39536 [facility] 7 W ILL/INJUR HOSPITALI ED ST PATIENT INIT 30-74 MIN COMMODE E0165 [facility] CHAIR 7 RESPITATO RESPITATO MOBILE/ST RY RY ATIONARY SERVICES SERVICES W/DETACHB LE ARMS HGB 24991 [facility] GLYCOSYLA 7 [facility] HEALTH DEVICE CTR CLEARED FDA HOME USE GLUC BLD 54823 [facility] HER[facility]NDEZ GLUC MNTR 7 [facility] [employer] HEALTH CLEARED CTR FDA SPEC HOME USE FEDERALLY G0467 [facility] CO 7 [facility] CTR CTR CENTER VISIT ESTAB PT BLOOD 09521 [facility] COUNT 7 [facility] COMPLETE HOLDINGS HOLDINGS AUTO&AUTO DIFRNTL WBC COMPREHEN 43481 [facility] SIVE 7 [facility] METABOLIC [place] [address] [facility] IRON 7 [facility] HOLDINGS HOLDINGS COLLECTIO 65786 [facility] N VENOUS 7 [facility] BLOOD HOLDINGS HOLDINGS VENIPUNCT URE BLD GLU A4253 [facility] TEST/REAG 7 PHARMACY PHARMACY T STRIPS #1569 #1569 HOME BLD GLU MON-50 FEDERALLY G0467 [facility] 7 [facility] CTR CTR CENTER VISIT ESTAB PT COMMODE E0165 MEG MEG CHAIR 7 RESPITATO RESPITATO MOBILE/ST RY RY ATIONARY SERVICES SERVICES W/[place] [address] [facility] ABDOMEN 7 W/O & RADIOLOGY RADIOLOGY W/[place] [address] [facility] ABDOMEN 7 W/CONTRAS RADIOLOGY RADIOLOGY T ASSOCIAT ASSOCIAT MATERIAL IMG-GUIDE 77708 [facility] FLUID 7 COLLXN RADIOLOGY DRAINAG [place] [address] ABDOMEN 7 KODY GATES W/O CONTRAST PHYSICIAN PHYSICIAN MATERIAL S November DRAINAGE [id number] [facility] OF LIVER 7 W W PERCUTANE REGIONAL REGIONAL OUS MEDICAL MEDICAL APPROACH FEDERALLY G0467 [facility] 7 [facility] CTR CTR CENTER VISIT ESTAB PT RADEX 47818 RADIOLOGY JESSICA RIBS UNI 7 INC W/POSTERO ANT CH MINIMUM 3 VIEWS DEBRIDEME 49680 [facility] NT NAIL 7 ANY METHOD 6/> BLD GLU A4253 [facility]/REAG 7 PHARMACY PHARMACY T STRIPS #1569 #1569 HOME BLD GLU MON-50 RADIOLOGI 72524 [facility]NDE[facility] C 6 [facility] ON TIBIA CTR & FIBULA 2 VIEWS GLUC BLD 41697 [facility]NDEZ GLUC MNTR 6 [employer] CLEARED CTR FDA SPEC HOME USE FEDERALLY G0467 CARA MARROQUIN CO 6 [facility] CTR CTR CENTER VISIT ESTAB PT FEDERALLY G0467 [facility]VIS 6 [facility] CTR CTR CENTER VISIT ESTAB PT BLD GLU A4253 [facility] TEST/REAG 6 PHARMACY PHARMACY T STRIPS #1569 #1569 HOME BLD GLU MON-50 URNLS DIP 90099 ALIZE WILLARD 6 [facility] LET RGNT P NON-AUTO W/O MICRSCP COMPREHEN 01898 [facility] SIVE 6 [facility] METABOLIC HOLDINGS HOLDINGS PANEL COLLECTIO 06794 [facility] N VENOUS 6 [facility] BLOOD HOLDINGS HOLDINGS VENIPUNCT URE BLOOD 75043 [facility] COUNT 6 [facility] COMPLETE HOLDINGS HOLDINGS AUTO&AUTO DIFRNTL WBC FEDERALLY G0467 [facility] MARROQUIN CO 6 [facility] CTR CTR CENTER VISIT ESTAB PT GLUC BLD 96607 [facility] HER[facility]NDEZ GLUC MNTR 6 [employer] CLEARED CTR FDA SPEC HOME USE HGB 78328 CARA HERNANDEZ GLYCOSYLA 6 [employer] CTR CLEARED FDA HOME USE BLD GLU A4253 [facility] TEST/REAG 6 PHARMACY PHARMACY T STRIPS #1569 #1569 HOME BLD GLU MON-50 GLUC BLD 04816 [facility] HERNANDEZ GLUC MNTR 6 [employer] CLEARED CTR FDA SPEC HOME USE FEDERALLY G0467 [facility] JARVIS 6 [facility] CTR CTR CENTER VISIT ESTAB PT BLOOD 42079 [facility] LAB [facility] COUNT 6 [facility] COMPLETE HOLDINGS HOLDINGS AUTO&AUTO DIFRNTL WBC COLLECTIO 50133 [facility] N VENOUS 6 [facility] BLOOD HOLDINGS HOLDINGS VENIPUNCT URE COMPREHEN 05718 [facility] SIVE 6 [facility] METABOLIC HOLDINGS HOLDINGS PANEL DEBRIDEME 02204 [facility] PAWSAT NT NAIL 6 MAR MAR ANY METHOD 6/> BLOOD 18280 [facility] COUNT 6 [facility] COMPLETE HOLDINGS HOLDINGS AUTO&AUTO DIFRNTL WBC FEDERALLY G0467 [facility] 6 [facility] CTR CTR CENTER VISIT ESTAB PT GLUC BLD 16563 [facility] ADVID GLUC MNTR 6 [facility] CLEARED CTR FDA SPEC HOME USE COMPREHEN 56715 [facility] SIVE 6 [facility] METABOLIC HOLDINGS HOLDINGS PANEL BLD GLU A4253 [facility] TEST/REAG 6 PHARMACY PHARMACY T STRIPS #1569 #1569 HOME BLD GLU MON-50 Encounters Encounter Start End Date Code Location Performer Type Date OFFICE 74625 [facility] OUTPATI[facility] [address] T VISIT & 25 PEDIATR MIN[address]ES OFFICE 30273 [facility] [address] T VISIT & [address]ES [address] [facility] OUTPATIEN [address] T VISIT & 25 PEDIATR MINUTES OFFICE 74797 [facility] OUTPATIEN 7 7 [facility] T VISIT HOSPITAL 10 P MINUTES HOSPITAL QIVIE - 7 7 W OUTPATIEN [facility] T MEDICAL OFFICE 96622 ALIZE WILLARD OUTPATIEN 7 7 [facility] T VISIT HOSPITAL 15 P MINUTES OFFICE 01765 [facility] OUT[facility] 7 7 [place] [facility] 30 CLINIC MINUTES [facility] 7 7 W INPATIENT [facility]AL [facility] EMERGENCY 35205 [facility] 7 7 RAHAT VISIT EMERGENCY HIGH PHYS SEVERITY& THREAT FUN OFFICE 35190 [facility] OUT[facility]IEN 7 7 FAMILY T VISIT HEALTH 15 CTR MINUTES OFFICE 91794 [facility] OUTPATIEN 7 7 FAMILY T VISIT HEALTH 25 CTR MINUTES [facility] 7 7 W OUTPATIEN [facility] MEDICAL EMERGENCY 29571 [facility] 7 7 RAHAT VISIT EMERGENCY HIGH PHYS SEVERITY& THREAT [facility] - 7 7 W INPATIENT [facility] MEDICAL OFFICE 16613 [facility] OUTPATIEN 7 7 FAMILY T VISIT HEALTH 25 CTR MINUTES OFFICE 53461 [facility] OUT[facility] 6 6 FAMILY T VISIT HEALTH 25 CTR MINUTES OFFICE 22470 [facility] 6 6 FAMILY T VISIT HEALTH 15 CTR MINUTES OFFICE 16455 [facility]ARD OUTPATIEN 6 6 [facility] 10 P MINUTES OFFICE 23154 [facility] OUTPATIEN 6 6 FAMILY T VISIT HEALTH 25 CTR MINUTES OFFICE 36048 [facility] 6 6 FAMILY T VISIT HEALTH 25 CTR MINUTES OFFICE 07755 [facility] OUT[facility] 6 6 FAMILY T VISIT HEALTH 25 CTR MINUTES
--- OUTSIDE RECORDS SUMMARY | 2017-02-19 20:12 | External Medical Summary Rpt ---
Author Author , GABY GRIFFIN Address Unknown Phone [email or web address] Care Team Providers Care Sales Appointment Coordinator Name Role Phone WILLARD, WILLARD Unavailable Unavailable WILLARD JACQUE, WILLARD Unavailable Unavailable [facility], [facility] AMEENA, AMEENA Unavailable Unavailable [facility] Unavailable Unavailable SERVICES, [facility] Unavailable Unavailable SERVICES, [facility] Unavailable Unavailable HOSPITAL P, [facility], HE[facility] Unavailable Unavailable [facility] Unavailable Unavailable [facility], [facility] Unavailable Unavailable [facility], [facility] RAUL, RAUL Unavailable Unavailable RAUL, RAUL Unavailable Unavailable [facility] Unavailable Unavailable [facility]IAT[facility], [facility] Unavailable Unavailable [facility], [facility] Unavailable Unavailable MEDICAL, [facility] MONNIG, MONNIG Unavailable Unavailable DAVID, DAVID Unavailable Unavailable DAVID JAM, DAVID Unavailable Unavailable J[facility] Unavailable Unavailable [facility], [facility] PAWSAT, PAWSAT Unavailable Unavailable PAWSAT, PAWSAT Unavailable Unavailable PAWSAT [facility], PAWSAT Unavailable Unavailable [facility], Unavailable [facility]available [facility] Unavailable Unavailable EMERGENCY PHYS, [facility] MICHELLE, Unavailable Unavailable MICHELLE [...] DOS Provider Status 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 [facility] INTER[facility] & [facility] WITH HYPERGLYCEM IA K750 ABSCESS OF 01-26-2017 [facility] LIVER INTERNAL & PEDIATR Z1883 RETAINED 01-26-2017 [facility] STONE OR INTERNAL & CRYSTALLINE PEDIATR FRAGMENTS Z8719 PERSONAL 01-26-2017 [facility] HISTORY INTERNAL & OTHER PEDIATR DISEASES DIGESTIVE SYSTEM 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 M6281 MUSCLE 01-18-2017 [facility] RESPITATORY GENERALIZED SERVICES R296 REPEATED 01-18-2017 [facility] SERVICES L0291 CUTANEOUS 01-12-2017 [facility] ABSCESS INTERNAL & UNSPECIFIED PEDIATR R1900 INTRA-ABD & 01-12-2017 [facility] PELVIC INTERNAL & SWELLING PEDIATR MASS & LUMP UNS SITE Z794 MCC 01-12-2017 [facility] CURRENT USE INTERNAL & OF INSULIN PEDIATR E119 TYPE 2 11-04-2016 [facility] & [facility] WITHOUT COMPLICATIO NS I2699 OTH 11-04-2016 [facility] PULMONARY INTERNAL & EMBOLISM PEDIATR W/O ACUTE COR PULMONALE I272 OTHER 11-04-2016 [facility] SECONDARY INTERNAL & PULMONARY PEDIATR HYPERTENSIO N A15195 PERSONAL 11-04-2016 [facility] HISTORY OF INTERNAL & PULMONARY PEDIATR EMBOLISM R339 RETENTION 10-28-2016 [facility] P E1122 TYPE 2 10-19-2016 [facility]AL ME[facility]US MEDICAL W/DIAB CHRON KIDNEY DZ N390 URINARY 10-19-2016 [facility] TRACT REGIONAL INFECTION MEDICAL SITE NOT SPECIFIED [...] 1-4 REHABILITAT CKD OR UNS ION CKD U01941 FOOT DROP 09-25-2016 [facility] REHABIL[facility] ION N183 CHRONIC 09-25-2016 [facility] DISEASE REHABILITAT STAGE 3 ION MODERATE R5381 OTHER 09-25-2016 [facility] ION I959 HYPOTENSION 09-22-2016 [facility] UNSPECIFIED ASSOCIAT M7989 OTHER 09-22-2016 [facility] SPECIFIED RADIOLOGY SOFT TISSUE ASSOCIAT DISORDERS R000 TACHYCARDIA 09-22-2016 [facility] UNSPECIFIED ASSOCIAT A4189 OTHER 09-20-2016 [facility] SPECIFIED N EMERGENCY SEPSIS PHYS A419 SEPSIS 09-20-2016 [facility] UNSPECIFIED REGIONAL ORGANISM MEDICAL E875 HYPERKALEMI 09-20-2016 [facility]GENC[facility] PHYS 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 09-20-2016 [facility] SIS LG RADIOLOGY INTEST W/O ASSOCIAT PERF/ABSC W/O BLEED N179 ACUTE 09-20-2016 [facility] KIDNEY N EMERGENCY FAILURE PHYS UNSPECIFIED R0602 SHORTNESS 09-20-2016 [facility] OF BREATH RADIOLOGY ASSOCIAT R112 NAUSEA WITH 09-20-2016 [facility] VOMITING RADIOLOGY UNSPECIFIED ASSOCIAT R410 DISORIENTAT 09-20-2016 [facility] ION RADIOLOGY UNSPECIFIED ASSOCIAT R531 WEAKNESS 09-20-2016 [facility] ASS[facility]IAT R935 ABN FIND DX 09-20-2016 [facility] IMAG OTH RADIOLOGY ABD REGIONS ASSOCIAT RETROPERITO NEUM D509 IRON 09-11-2016 [facility] UNSPECIFIED 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 E785 HYPERLIPIDE 09-11-2016 [facility] UNSPECIFIED HEALTH CTR I10 ESSENTIAL 08-26-2016 [facility] HYPERTENSIO [facility]ALTH CTR N C29324 CUTANEOUS 08-19-2016 [facility] ABSCESS OF RADIOLOGY ABDOMINAL ASSOCIAT WALL K651 PERITONEAL 07-31-2016 [facility] ABSCESS RADIOLOGY ASSOCIAT M1990 UNSPECIFIED 07-30-2016 [facility] [...] 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 R0781 PLEURODYNIA 07-22-2016 [facility] G9562MA FRACTURE 07-22-2016 [facility] ONE RIB INC RIGHT INITIAL ENCNTR CLOSED FX B351 TINEA 07-16-2016 [facility] UNGUIUM F38895 PAIN IN 07-16-2016 [facility] RIGHT FOOT R78004 PAIN IN 07-16-2016 [facility] LEFT FOOT N63609 PAIN IN 06-12-2016 [facility] LEFT LOWER INC LEG I46548 PAIN IN 05-15-2016 [facility] RIGHT KNEE [facility] H51251 PAIN IN 05-15-2016 [facility] LEFT KNEE [facility] CTR R3914 FEELING OF 04-08-2016 [facility] P EMPTYING R5383 OTHER 04-02-2016 [facility] E1140 TYPE 2 DM 02-27-2016 [facility] WITH PHARMACY DIABETIC #1569 NEUROPATHY UNSPECIFIED 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 [facility] X87324 TYPE 2 12-26-2015 [facility] MELLITUS [facility] W/HYPOGLYCE ANKITA W/O COMA Q40303 PAIN IN 12-26-2015 [facility] RIGHT HIP [facility] W15357 OTHER LONG 12-26-2015 [facility] TERM FAMILY [...] DOS Code Location Performer Comment CUL BACT 44719 [facility] XCPT 7 [facility] URINE [facility] HOLDINGS BLOOD/STO OL AEROBIC ISOL COMMODE E0165 MEG MEG CHAIR 7 RESPITATO RESPITATO MOBILE/ST RY RY ATIONARY SERVICES SERVICES W/DETACHB LE ARMS CUL BACT 09735 [facility] XCPT 7 MARY [facility]ARY URINE HOLDINGS HOLDINGS BLOOD/STO OL AEROBIC ISOL CUL BACT 44290 [facility] AEROBIC 7 W W ADDL [facility] METHS MEDICAL MEDICAL DEFINITIV E EA ISOL CULTURE 86474 KATHIE VÁZQUEZ BACTERIAL 7 W W [facility] QUANTTATI MEDICAL MEDICAL VE COLONY COUNT URINE BASIC 69708 KATHIE VÁZQUEZ METABOLIC 7 W W PANEL [facility] CALCIUM MEDICAL MEDICAL TOTAL SUSCEPTIB 41003 KATHIE VÁZQUEZ LTY STDY 7 W W ANTIMICRB [facility] IAL MEDICAL MEDICAL MICRO/AGA R DILUTJ URNLS DIP 45582 PRAMODWROSY BENAVIDEZWROSY 7 W W STICK/TAB REG[facility]AL [facility] LET [facility] MEDICAL REAGENT AUTO MICROSCOP Y COMMODE E0165 ME[facility] MEG CHAIR 7 RESPITATO RESPITATO [facility] W/DETACHB [facility] [address] [place] [address] PHYSICAL DAY MEDICINE MANAGEMEN AND T 30 MIN/< SBSQ 50314 [place] [address] PHYSICAL CARE/DAY MEDICINE 15 AND MINUTES SBSQ 75302 [facility] 7 CARE/DAY 25 MINUTES SBSQ 54300 [place] [address] PHYSICAL CARE/DAY MEDICINE 25 AND MINUTES SBSQ 12282 [place] [address] PHYSICAL CARE/DAY MEDICINE 25 AND MINUTES SBSQ 77968 [place] [address] PHYSICAL CARE/DAY MEDICINE 25 AND MINUTES SBSQ 61917 [facility] 7 CARE/DAY 15 MINUTES SBSQ 14963 [facility] 7 CARE/DAY 15 MINUTES SBSQ 89911 [place] [address] PHYSICAL CARE/DAY MEDICINE 25 AND MINUTES SBSQ 45322 [facility] 7 CARE/DAY 25 MINUTES SBSQ 23363 [facility] 7 CARE/DAY 25 MINUTES SBSQ 61058 [place] [address] PHYSICAL CARE/DAY MEDICINE 25 AND MINUTES SBSQ 83607 [place] [address] PHYSICAL CARE/DAY MEDICINE 25 AND MINUTES SBSQ 03040 [place] [address] PHYSICAL CARE/DAY MEDICINE 25 AND MINUTES INITIAL 54928 [facility] 7 CARE/DAY 70 MINUTES SBSQ 76051 [place] [address] PHYSICAL CARE/DAY MEDICINE 15 AND MINUTES SBSQ 35283 [place] [address] PHYSICAL CARE/DAY MEDICINE 25 AND MINUTES INITIAL 29165 [place] [address] PHYSICAL CARE/DAY MEDICINE 50 AND MINUTES HOSPITAL 84534 [facility] 7 W DAY [facility]PITALI MANA[address]EMEN [address] T > [address] [facility] 7 W CARE/DAY [facility]OSPITALI [address] [facility] 7 W CARE/DAY [facility] [address] [facility] 7 W CARE/DAY HOSPITALI [address] MINUTES ECHO 92997 [facility] R-T 7 N N 2D W/WOM-MOD E COMPL SPEC&COLR D PULMONARY 81272 [facility] 7 VENTILATI RADIOLOGY ON & [place] [address] [facility] HEAD/BRAI 7 N W/O RADIOLOGY CONTRAST ASSOCIAT MATERIAL RADIOLOGI 18732 [facility] C 7 EXAMINATI RADIOLOGY ON CHEST ASSOCIAT SINGLE VIEW FRONTAL DUP-SCAN 68035 [facility] XTR VEINS 7 COMPLETE RADIOLOGY ASSOCIAT BILATERAL STUDY SBSQ 34683 [facility] 7 W CARE/DAY HOSPITALI [address] MINUTES RADIOLOGI 63067 [facility] C 7 EXAMINATI RADIOLOGY RADIOLOGY ON CHEST ASSOCIAT ASSOCIAT SINGLE VIEW FRONTAL ECG [address] [facility] ROUTINE 7 RAHAT ECG EMERGENCY W/LEAST PHYS 12 LDS I&[place] [address] [facility] ABDOMEN & 7 P[facility]VIS RADIOLOGY RADIOLOGY W/O ASSOCIAT ASSOCIAT CONTRAST MATERIAL CRITICAL 43833 [facility] 7 W ILL/INJUR HOSPITALI ED ST PATIENT INIT 30-74 MIN COMMODE E0165 [facility] CHAIR 7 RESPITATO RESPITATO MOBILE/ST RY RY ATIONARY SERVICES SERVICES W/DETACHB LE ARMS HGB 08332 [facility] GLYCOSYLA 7 [facility] CTR CLEARED FDA HOME USE GLUC BLD 21741 [facility] GLUC MNTR 7 [facility] 6fusion HEALTH CLEARED CTR FDA SPEC HOME USE FEDERALLY G0467 [facility] 7 [facility] CTR CTR CENTER VISIT ESTAB PT BLOOD 33282 [facility] COUNT 7 [facility] COMPLETE HOLDINGS HOLDINGS AUTO&AUTO DIFRNTL WBC COMPREHEN 57651 [facility] SIVE 7 [facility] METABOLIC [place] [address] [facility] L[facility] IRON 7 [facility] HOLDINGS HOLDINGS COLLECTIO 77916 [facility] N VENOUS 7 [facility] BLOOD HOLDINGS HOLDINGS VENIPUNCT URE BLD GLU A4253 [facility] TEST/REAG 7 PHARMACY PHARMACY T STRIPS #1569 #1569 HOME BLD GLU MON-50 FEDERALLY G0467 [facility] 7 [facility] CTR CTR CENTER VISIT ESTAB PT COMMODE E0165 MEG MEG CHAIR 7 RESPITATO RESPITATO MOBILE/ST RY RY ATIONARY SERVICES SERVICES [place] [address] [facility] ABDOMEN 7 W/O & RADIOLOGY RADIOLOGY W/[place] [address] [facility] ABDOMEN 7 W/CONTRAS RADIOLOGY RADIOLOGY T ASSOCIAT ASSOCIAT MATERIAL IMG-GUIDE 66457 [facility] FLUID 7 COLLXN RADIOLOGY DRAINAG [place] [address] ABDOMEN 7 KODY GATES W/O CONTRAST PHYSICIAN PHYSICIAN MATERIAL S November DRAINAGE [id number] [facility] OF LIVER 7 W W PERCUTANE REGIONAL REGIONAL OUS MEDICAL MEDICAL APPROACH FEDERALLY G0467 [facility] 7 [facility] CTR CTR CENTER VISIT ESTAB PT RADEX 11493 RADI[facility]Y JESSICA RIBS UNI 7 INC W/POSTERO ANT CH MINIMUM 3 VIEWS DEBRIDEME 37394 [facility] NT NAIL 7 ANY METHOD 6/> BLD GLU A4253 [facility]/REAG 7 PHARMACY PHARMACY T STRIPS #1569 #1569 HOME BLD GLU MON-50 RADIOLOGI 18080 [facility] C 6 [employer] ON TIBIA CTR & FIBULA 2 VIEWS GLUC BLD 45336 [facility]NDE[facility] GLUC MNTR 6 [employer] CLEARED CTR FDA SPEC HOME USE FEDERALLY G0467 [facility]OQU[facility] CO 6 [facility] CTR CTR CENTER VISIT ESTAB PT FEDERALLY G0467 [facility]VIS 6 [facility] CTR CTR CENTER VISIT ESTAB PT BLD GLU A4253 [facility]/REAG 6 PHARMACY PHARMACY T STRIPS #1569 #1569 HOME BLD GLU MON-50 URNLS DIP 94826 [facility] WILLARD 6 [facility] LET RGNT P NON-AUTO W/O MICRSCP COMPREHEN 66911 [facility] SIVE 6 [facility] METABOLIC HOLDINGS HOLDINGS PANEL COLLECTIO 37916 [facility] N VENOUS 6 [facility] BLOOD HOLDINGS HOLDINGS VENIPUNCT URE BLOOD 71910 [facility] COUNT 6 [facility] COMPLETE HOLDINGS HOLDINGS AUTO&AUTO DIFRNTL WBC FEDERALLY G0467 [facility] 6 [facility] CTR CTR CENTER VISIT ESTAB PT GLUC BLD 29270 [facility] HER[facility]NDEZ GLUC MNTR 6 [employer] CLEARED CTR FDA SPEC HOME USE HGB 77726 [facility] HERNANDEZ GLYCOSYLA 6 [employer] [facility] CTR CLEARED FDA HOME USE BLD GLU A4253 [facility] TEST/REAG 6 PHARMACY PHARMACY T STRIPS #1569 #1569 HOME BLD GLU MON-50 GLUC BLD 88248 [facility] GLUC MNTR 6 [employer] CLEARED CTR FDA SPEC HOME USE FEDERALLY G0467 [facility]VIS 6 [facility] CTR CTR CENTER VISIT ESTAB PT BLOOD 78549 [facility] COUNT 6 [facility] COMPLETE HOLDINGS HOLDINGS AUTO&AUTO DIFRNTL WBC COLLECTIO 61761 [facility] L[facility] N VENOUS 6 [facility] BLOOD HOLDINGS HOLDINGS VENIPUNCT URE COMPREHEN 34369 [facility] SIVE 6 [facility] METABOLIC HOLDINGS HOLDINGS PANEL DEBRIDEME 30357 [facility] PAWSAT NT NAIL 6 MAR MAR ANY METHOD 6/> BLOOD 57421 [facility] COUNT 6 [facility] COMPLETE HOLDINGS HOLDINGS AUTO&AUTO DIFRNTL WBC FEDERALLY G0467 [facility] 6 [facility] CTR CTR CENTER VISIT ESTAB PT GLUC BLD 01440 [facility] DAVID GLUC MNTR 6 [facility] CLEARED CTR FDA SPEC HOME USE COMPREHEN 48238 [facility] L[facility] SIVE 6 [facility] METABOLIC HOLDINGS HOLDINGS PANEL BLD GLU A4253 [facility] TEST/REAG 6 PHARMACY PHARMACY T STRIPS #1569 #1569 HOME BLD GLU MON-50 Encounters Encounter Start End Date Code Location Performer Type Date OFFICE 53278 [facility] OUTPATIEN [address] T VISIT & 25 PEDIATR MINUTES OFFICE 68681 [facility] OUTPATIEN [address] T VISIT & 25 PEDIATR MINUTES OFFICE 88668 [facility] OUTPATIEN [address] T VISIT & 25 PEDIATR MINUTES OFFICE 63222 [facility] OUTPATIEN 7 7 [facility] T VISIT HOSPITAL 10 P MINUTES HOSPITAL QIVIE - 7 7 W OUTPATIEN [facility] T MEDICAL OFFICE 59202 [facility] OUTPATIEN 7 7 [facility] T VISIT HOSPITAL 15 P MINUTES OFFICE 85646 [facility] OUT[facility] 7 7 [place] [facility] 30 CLINIC MINUTES [facility] - 7 7 [facility] - 7 7 W INPATIENT REGIONAL MEDICAL EMERGENCY 55883 [facility] 7 7 RAHAT VISIT EMERGENCY HIGH PHYS SEVERITY& THREAT FUN OFFICE 08096 [facility] OUT[facility] 7 7 FAMILY T VISIT HEALTH 15 CTR MINUTES OFFICE 97246 [facility] OUTPATIEN 7 7 FAMILY T VISIT HEALTH 25 CTR MINUTES [facility]OS[facility] 7 7 W OUTPATIEN [facility] MEDICAL EMERGENC[facility] 83451 [facility] 7 7 RAHAT VISIT EMERGENCY HIGH PHYS SEVERITY& THREAT [facility] - 7 7 W INPATIENT [facility] MEDICAL OFFICE 37245 [facility] OUT[facility] 7 7 FAMILY T VISIT HEALTH 25 CTR MINUTES OFFICE 12704 [facility] 6 6 FAMILY T VISIT HEALTH 25 CTR MINUTES OFFICE 38841 [facility] 6 6 FAMILY T VISIT HEALTH 15 CTR MINUTES OFFICE 82546 [facility] OUTPATIEN 6 6 [facility] 10 P MINUTES OFFICE 23001 [facility] 6 6 FAMILY T VISIT HEALTH 25 CTR MINUTES OFFICE 89162 [facility] 6 6 FAMILY T VISIT HEALTH 25 CTR MINUTES OFFICE 85021 [facility] 6 6 FAMILY T VISIT HEALTH 25 CTR MINUTES
--- OUTSIDE RECORDS SUMMARY | 2017-02-19 20:13 | External Medical Summary Rpt ---
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 Role Phone WILLARD, WILLARD Unavailable Unavailable WILLARD JACQUE, WILLARD Unavailable Unavailable [facility], [facility] AMEENA, AMEENA Unavailable Unavailable [facility] Unavailable Unavailable SERVICES, [facility] Unavailable Unavailable SERVICES, [facility] Unavailable Unavailable [facility] P, [facility], [facility] Unavailable Unavailable [facility] Unavailable Unavailable [facility], [facility] Unavailable Unavailable [facility]INGS, [facility] RAUL, RAUL Unavailable Unavailable RAUL, RAUL Unavailable Unavailable [facility], [facility] Unavailable Unavailable PEDIATR, [facility] Unavailable Unavailable ASSOCIAT, [facility] Unavailable Unavailable MEDICAL, [facility] MONNIG, MONNIG Unavailable Unavailable DAVID, DAVID Unavailable Unavailable DAVID JAM, DAVID Unavailable Unavailable J[facility] Unavailable Unavailable [facility], [facility] PAWSAT, PAWSAT Unavailable Unavailable PAWSAT, PAWSAT Unavailable Unavailable PAWSAT [facility], PAWSAT Unavailable Unavailable [facility], Unavailable [facility]available [facility] Unavailable Unavailable EMERGENCY PHYS, [facility] MICHELLE, Unavailable Unavailable MICHELLE [...] DOS Provider Status 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 [facility] WITH HYPERGLYCEM IA K750 ABSCESS OF 01-26-2017 [facility] LIVER INTERNAL & PEDIATR Z1883 RETAINED 01-26-2017 [facility] STONE OR INTERNAL & CRYSTALLINE PEDIATR FRAGMENTS Z8719 PERSONAL 01-26-2017 [facility] HISTORY INTERNAL & OTHER PEDIATR DISEASES DIGESTIVE SYSTEM 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 M6281 MUSCLE 01-18-2017 [facility] RESPITATORY GENERALIZED SERVICES R296 REPEATED 01-18-2017 [facility] SERVICES L0291 CUTANEOUS 01-12-2017 [facility] ABSCESS INTERNAL & UNSPECIFIED PEDIATR R1900 INTRA-ABD & 01-12-2017 [facility] PELVIC INTERNAL & SWELLING PEDIATR MASS & LUMP UNS SITE 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-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 [facility] 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 USE INTERNAL & OF INSULIN PEDIATR E119 TYPE 2 11-04-2016 [facility] WITHOUT COMPLICATIO NS I2699 OTH 11-04-2016 [facility] PULMONARY [facility] & EMBOLISM PEDIATR W/O ACUTE COR PULMONALE I272 OTHER 11-04-2016 [facility] SECONDARY INTERNAL & PULMONARY PEDIATR HYPERTENSIO N V71885 PERSONAL 11-04-2016 [facility] HISTORY OF INTERNAL & PULMONARY PEDIATR EMBOLISM R339 RETENTION 10-28-2016 [facility] P E1122 TYPE 2 10-19-2016 [facility] MEDICAL W/DIAB CHRON KIDNEY DZ N390 URINARY 10-19-2016 [place] TRACT REGIONAL INFECTION MEDICAL SITE NOT SPECIFIED [...] 1-4 REHABILITAT CKD OR UNS ION CKD U34863 FOOT DROP 09-25-2016 [facility]OT [facility] RE[facility] ION N183 CHRONIC 09-25-2016 [facility] K[facility] DISEASE REHABILITAT STAGE 3 ION MODERATE R5381 OTHER 09-25-2016 [facility] MALAISE [facility] ION I959 HYPOTENSION 09-22-2016 [facility] UNSPECIFIED ASSOCIAT M7989 OTHER 09-22-2016 [facility] SPECIFIED RADIOLOGY SOFT TISSUE ASSOCIAT DISORDERS R000 TACHYCARDIA 09-22-2016 [facility] UNSPECIFIED ASSOCIAT A4189 OTHER 09-20-2016 [facility] SPECIFIED N EMERGENCY SEPSIS PHYS A419 SEPSIS 09-20-2016 [facility] UNSPECIFIED REGIONAL ORGANISM MEDICAL E875 HYPERKALEMI 09-20-2016 [facility] PH[facility] 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 09-20-2016 [facility] SIS [facility]Y INTEST W/O ASSOCIAT PERF/ABSC W/O BLEED N179 ACUTE 09-20-2016 [facility] KIDNEY N EMERGENCY FAILURE PHYS UNSPECIFIED R0602 SHORTNESS 09-20-2016 [facility] OF BREATH RADIOLOGY ASSOCIAT R112 NAUSEA WITH 09-20-2016 [facility] VOMITING [facility] UNSPECIFIED ASSOCIAT R410 DISORIENTAT 09-20-2016 [facility] ION [facility] UNSPECIFIED ASSOCIAT R531 WEAKNESS 09-20-2016 [facility] ASSOCIAT R935 ABN FIND DX 09-20-2016 [facility] IMAG OTH RADIOLOGY ABD REGIONS ASSOCIAT RETROPERITO NEUM D509 IRON 09-11-2016 [facility] UNSPECIFIED 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 E785 HYPERLIPIDE 09-11-2016 [facility] UNSPECIFIED [facility]ALTH CTR I10 ESSENTIAL 08-26-2016 [facility] HYPERTENSIO HEALTH CTR N M04198 CUTANEOUS 08-19-2016 [facility] ABSCESS OF RADIOLOGY ABDOMINAL ASSOCIAT WALL K651 PERITONEAL 07-31-2016 [facility] ABSCESS RADIOLOGY ASSOCIAT M1990 UNSPECIFIED 07-30-2016 [facility] [...] CTR TIETZE R0781 PLEURODYNIA 07-22-2016 [facility] P8042MH FRACTURE 07-22-2016 [facility] ONE RIB INC RIGHT INITIAL ENCNTR CLOSED FX B351 TINEA 07-16-2016 [facility] UNGUIUM K45994 PAIN IN 07-16-2016 [facility] RIGHT FOOT P25862 PAIN IN 07-16-2016 [facility] LEFT FOOT Z03645 PAIN IN 06-12-2016 [facility] LEFT LOWER INC LEG U07692 PAIN IN 05-15-2016 [facility] RIGHT KNEE [facility] Z69947 PAIN IN 05-15-2016 [facility] LEFT KNEE [facility] R3914 FEELING OF 04-08-2016 [facility] P EMPTYING R5383 OTHER 04-02-2016 [facility] E1140 TYPE 2 DM 02-27-2016 [facility] WITH PHARMACY DIABETIC #1569 NEUROPATHY UNSPECIFIED 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 E66761 TYPE 2 12-26-2015 [facility]ET[facility] CTR W/HYPOGLYCE ANKITA W/O COMA S25288 PAIN IN 12-26-2015 [facility] RIGHT HIP [facility] Z26216 OTHER LONG 12-26-2015 [facility] TERM [facility] CURRENT [facility] CTR DRUG THERAPY Procedures Procedure DOS Code Location Performer Comment CUL BACT 20979 [facility] XCPT 7 [facility] URINE HOLDINGS HOLDINGS BLOOD/STO OL AEROBIC ISOL COMMODE E0165 MEG MEG CHAIR 7 RESPITATO RESPITATO MOBILE/ST [facility] ATIONARY SERVICES SERVICES W/DETACHB [place] CUL BACT 60905 [facility] XCPT 7 [facility] URINE HOLDINGS HOLDINGS BLOOD/STO OL AEROBIC ISOL CUL BACT 42953 [facility] AEROBIC 7 W W [facility] MEDICAL DEFINITIV E EA ISOL CULTURE 00478 [facility] BACTERIAL 7 W [facility] MEDICAL MEDICAL VE COLONY COUNT URINE BASIC 46496 [facility] METABOLIC 7 W W PANEL REGIONAL REGIONAL CALCIUM MEDICAL MEDICAL TOTAL URNLS DIP 82495 [facility] BENAVIDEZWROSY 7 W W STICK/TAB [facility]AL [facility] LET MEDICAL MEDICAL REAGENT AUTO MICROSCOP Y SUSCEPTIB 95472 KATHIE VÁZQUEZ LTY STDY 7 W W ANTIMICRB [facility] IAL MEDICAL MEDICAL MICRO/AGA R DILUTJ COMMODE E0165 MEG MEG CHAIR 7 RESPITATO RESPITATO MOBILE/ST RY RY ATIONARY SERVICES SERVICES W/DETACHB [facility] 520[address] [facility] 7 PHYSICAL DAY MEDICINE MANAGEMEN AND T 30 MIN/< SBSQ 36900 [place] [address] PHYSICAL CARE/DAY MEDICINE 15 AND MINUTES SBSQ 13268 [facility] 7 CARE/DAY 25 MINUTES SBSQ 61777 [place] [address] PHYSICAL CARE/DAY MEDICINE 25 AND MINUTES SBSQ 51817 [facility] 7 PHYSICAL CARE/DAY MEDICINE 25 AND MINUTES SBSQ 34141 [facility] 7 PHYSICAL CARE/DAY MEDICINE 25 AND MINUTES SBSQ 16828 [facility] 7 CARE/DAY 15 MINUTES SBSQ 27159 [facility] 7 CARE/DAY 15 MINUTES SBSQ 45673 [facility] 7 PHYSICAL CARE/DAY MEDICINE 25 AND MINUTES SBSQ 48771 [facility] 7 CARE/DAY 25 MINUTES SBSQ 80176 [facility] 7 CARE/DAY 25 MINUTES SBSQ 82250 [facility] 7 PHYSICAL CARE/DAY MEDICINE 25 AND MINUTES SBSQ 84223 [facility] 7 PHYSICAL CARE/DAY MEDICINE 25 AND MINUTES INITIAL 90462 [facility] 7 CARE/DAY 70 MINUTES SBSQ 60329 [facility] 7 PHYSICAL CARE/DAY MEDICINE 25 AND MINUTES SBSQ 39674 [place] [address] PHYSICAL CARE/DAY MEDICINE 15 AND MINUTES SBSQ 85931 [facility] 7 PHYSICAL CARE/DAY MEDICINE 25 AND MINUTES HOSPITAL 98240 [facility] D[facility] 7 W DAY [facility]I [address]EMEN [address] T > 30 MIN INITIAL 66437 [facility] 7 PHYSICAL CARE/DAY MEDICINE [address] [facility] 7 W CARE/DAY HOSPITALI [address] [facility] 7 W CARE/DAY HOSPITALI [address] [facility] 7 W CARE/[place] [address] [place] [address] [facility] HEAD/BRAI 7 N W/O RADIOLOGY CONTRAST ASSOCIAT MATERIAL RADIOLOGI 80247 [facility] C 7 EXAMINATI RADIOLOGY ON CHEST ASSOCIAT SINGLE VIEW FRONTAL DUP-SCAN 52576 [facility] XTR VEINS 7 COMPLETE RADIOLOGY ASSOCIAT BILATERAL STUDY PULMONARY 73317 [facility] 7 VENTILATI RADIOLOGY ON & ASSOCIAT PERFUSION IMAGING ECHO 56585 [facility] R-T 7 N N 2D W/WOM-MOD E COMPL SPEC&COLR D SBSQ 06115 [facility] 7 W CARE/DAY HOSPITALI [address] MINUT[address] RADIOLOGI 63563 [facility] C 7 EXAMINATI RADIOLOGY RADIOLOGY ON CHEST ASSOCIAT ASSOCIAT SINGLE VIEW FRONTAL CRITICAL 16661 [facility] 7 W ILL/INJUR HOSPITALI ED ST PATIENT INIT 30-[address] [place] [address] [facility] ABDOMEN & 7 PELVIS RADIOLOGY RADIOLOGY W/O ASSOCIAT ASSOCIAT CONTRAST MATERIAL ECG 66127 [facility] ROUTINE 7 RAHAT ECG EMERGENCY W/LEAST PHYS 12 LDS I&R ONLY COMMODE E0165 MEG MEG CHAIR 7 RESPITATO RESPITATO MOBILE/ST [facility] ATIONARY SERVICES SERVICES W/DETACHB [place] BLOOD 98240 [facility] COUNT 7 [facility] COMPLETE HOLDINGS HOLDINGS AUTO&AUTO DIFRNTL WBC HGB 84251 [facility]NDEZ [facility] 7 [facility] Tipping Bucket DEVICE CTR CLEARED FDA HOME USE GLUC BLD 70696 [facility] GLUC MNTR 7 [facility] CLEARED CTR FDA SPEC HOME USE COLLECTIO 33465 [facility] N VENOUS 7 [facility] BLOOD HOLDINGS HOLDINGS VENIPUNCT URE COMPREHEN 37672 [facility] SIVE 7 [facility] METABOLIC [place] [address] [facility] L[facility] IRON 7 [facility] HOLDINGS HOLDINGS FEDERALLY G0467 [facility] 7 [facility] CTR CTR CENTER VISIT ESTAB PT FEDERALLY G0467 [facility] 7 [facility] CTR CTR CENTER VISIT ESTAB PT BLD GLU A4253 [facility] TEST/REAG 7 PHARMACY PHARMACY T STRIPS #1569 #1569 HOME BLD GLU MON-50 COMMODE E0165 MEG MEG CHAIR 7 RESPITATO RESPITATO MOBILE/ST [facility] SERVICES SERVICES [place] [address] [facility] ABDOMEN 7 W/O & RADIOLOGY RADIOLOGY W/[place] [address] [facility] ABDOMEN 7 W/CONTRAS RADIOLOGY RADIOLOGY T ASSOCIAT ASSOCIAT MATERIAL IMG-GUIDE 69315 [facility] FLUID 7 COLLXN RADIOLOGY DRAINAG ASSOCIAT CATH PERITON PERQ DRAINAGE 6Y107GK [facility] LIVER 7 W W [facility] [place] [address] [facility] 7 KODY GATES W/O CONTRAST PHYSICIAN PHYSICIAN MATERIAL S November RADEX 29370 RADIOLOGY JESSICA RIBS UNI 7 INC W/POSTERO ANT CH MINIMUM 3 VIEWS FEDERALLY G0467 [facility] 7 [facility] CTR CTR CENTER VISIT ESTAB PT DEBRIDEME 90888 [facility] PAWSAT NT NAIL 7 ANY METHOD 6/> BLD GLU A4253 [facility]/REAG 7 PHARMACY PHARMACY T STRIPS #1569 #1569 HOME BLD GLU MON-50 FEDERALLY G0467 [facility] 6 [facility] CTR CTR CENTER VISIT ESTAB PT GLUC BLD 60251 [facility] DAVID GLUC MNTR 6 [facility] [employer] CLEARED CTR FDA SPEC HOME USE RADIOLOGI 91488 [facility] DAVID C 6 FAMILY CAMPOS [facility] ON TIBIA CTR & FIBULA 2 VIEWS FEDERALLY G0467 [facility] 6 [facility] CTR CTR CENTER VISIT ESTAB PT BLD GLU A4253 [facility] TEST/REAG 6 PHARMACY PHARMACY T STRIPS #1569 #1569 HOME BLD GLU MON-50 URNLS DIP 25519 ALIZE WILLARD 6 [facility] LET RGNT P NON-AUTO W/O MICRSCP COMPREHEN 61026 [facility] SIVE 6 [facility] METABOLIC HOLDINGS HOLDINGS PANEL GLUC BLD 46001 [facility] HER[facility]NDEZ GLUC MNTR 6 [facility] charming charlie [facility] CLEARED CTR FDA SPEC HOME USE COLLECTIO 99052 [facility] N VENOUS 6 [facility] BLOOD HOLDINGS HOLDINGS VENIPUNCT URE BLOOD 48207 [facility] COUNT 6 [facility] COMPLETE HOLDINGS HOLDINGS AUTO&AUTO DIFRNTL WBC HGB 03113 [facility] GLYCOSYLA 6 [facility] CLEARED FDA HOME USE FEDERALLY G0467 [facility] MARROQU[facility] CO 6 [facility] CTR CTR CENTER VISIT ESTAB PT BLD GLU A4253 [facility] TEST/REAG 6 PHARMACY PHARMACY T STRIPS #1569 #1569 HOME BLD GLU MON-50 FEDERALLY G0467 [facility] 6 [facility] CTR CTR CENTER VISIT ESTAB PT BLOOD 78566 [facility] COUNT 6 [facility] COMPLETE HOLDINGS HOLDINGS AUTO&AUTO DIFRNTL WBC COLLECTIO 44464 [facility] N VENOUS 6 [facility] BLOOD HOLDINGS HOLDINGS VENIPUNCT URE GLUC BLD 32565 [facility] GLUC MNTR 6 [facility] [employer] [facility] CLEARED CTR FDA SPEC HOME USE COMPREHEN 87074 [facility] SIVE 6 [facility]ARY [facility] METABOLIC HOLDINGS HOLDINGS PANEL DEBRIDEME 03435 PAWSAT PAWSAT NT NAIL 6 MAR MAR ANY METHOD 6/> COMPREHEN 92309 [facility] SIVE 6 [facility] METABOLIC HOLDINGS HOLDINGS PANEL GLUC BLD 74139 [facility] GLUC MNTR 6 [facility] CLEARED CTR FDA SPEC HOME USE BLOOD 04140 [facility] COUNT 6 [facility] COMPLETE HOLDINGS HOLDINGS AUTO&AUTO DIFRNTL WBC FEDERALLY G0467 [facility] 6 [facility] CTR CTR CENTER VISIT ESTAB PT BLD GLU A4253 [facility] TEST/REAG 6 PHARMACY PHARMACY T STRIPS #1569 #1569 HOME BLD GLU MON-50 Encounters Encounter Start End Date Code Location Performer Type Date OFFICE 90922 [facility] OUTPATIEN [address] T VISIT & 25 PEDIATR MINUTES OFFICE 08359 [facility] OUTPATIEN [address] T VISIT & 25 PEDIATR MINUTES OFFICE 01590 [facility] OUTPATIEN [address] T VISIT & 25 PEDIATR MINUTES OFFICE 22217 [facility] OUTPATIEN 7 7 [facility] 10 P MINUTES HOSPITAL [facility] - 7 [facility] 89490 [facility] WILL[facility] OUTPATIEN 7 7 [facility] 15 P MINUTES [facility]ICE 14486 [facility] OUTPATIEN [address] [facility] NEW 30 CLINIC MINUTES [facility] - 7 7 [facility]PAT[facility] ATION EMERGENCY 56794 [facility] DEPT 7 7 RAHAT VISIT EMERGENCY HIGH PHYS SEVERITY& THREAT [facility] KATHIE - 7 7 W INPATIENT [facility] MEDICAL OFFICE 62373 [facility] OUT[facility]IEN 7 7 FAMILY T VISIT HEALTH 15 CTR MINUTES OFFICE 63337 [facility] OUT[facility]IEN 7 7 FAMILY T VISIT HE[facility] 25 CTR [facility]UTES [facility] - 7 7 W INPATIENT [facility] MEDICAL EMERGENCY 44138 [facility] 7 7 RAHAT VISIT EMERGENCY HIGH PHYS SEVERITY& THREAT FUNCJ OFFICE 41282 [facility] 7 7 FAMILY T VISIT HEALTH 25 CTR MINUTES OFFICE 64082 [facility] 6 6 FAMILY T VISIT HEALTH 25 CTR MINUTES OFFICE 80947 [facility] 6 6 FAMILY T VISIT HEALTH 15 CTR MINUTES OFFICE 94758 ALIZE WILLARD OUTPATIEN 6 6 [facility] 10 P MINUTES OFFICE 73225 [facility] 6 6 FAMILY T VISIT HEALTH 25 CTR MINUTES OFFICE 23119 [facility] 6 6 FAMILY T VISIT HEALTH 25 CTR MINUTES OFFICE 55443 [facility] 6 6 FAMILY T VISIT HEALTH 25 CTR MINUTES
--- OUTSIDE RECORDS SUMMARY | 2017-02-19 20:13 | External Medical Summary Rpt ---
Author Author , GABY GRIFFIN Address Unknown Phone [email or web address] Care Team Providers Care Licensed Insurance Agent Name Role Phone WILLARD, WILLARD Unavailable Unavailable WILLARD JACQUE, WILLARD Unavailable Unavailable [facility] Unavailable Unavailable [facility], [facility] AMEENA, AMEENA Unavailable Unavailable [facility] Unavailable Unavailable SERVICES, [facility] Unavailable Unavailable SERVICES, [facility] Unavailable Unavailable HOSPITAL P, [facility], HE[facility] Unavailable Unavailable [facility] Unavailable Unavailable [facility], [facility] Unavailable Unavailable [facility]INGS, [facility] RAUL, RAUL Unavailable Unavailable RAUL, RAUL Unavailable Unavailable [facility] Unavailable Unavailable [facility]IATR, [facility] Unavailable Unavailable [facility]AT, [facility] Unavailable Unavailable MEDICAL, [facility] MONNIG, MONNIG Unavailable Unavailable DAVID, DAVID Unavailable Unavailable DAVID JAM, DAVID Unavailable Unavailable [facility] Unavailable Unavailable [facility]SC, [facility] PAWSAT, PAWSAT Unavailable Unavailable PAWSAT, PAWSAT Unavailable Unavailable PAWSAT [facility], PAWSAT Unavailable Unavailable [facility], Unavailable [facility]available [facility] Unavailable Unavailable EMERGENCY PHYS, [facility] MICHELLE, Unavailable Unavailable [...] DOS Provider Status 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 [facility] INTER[facility] & [facility]US [facility]IATR WITH HYPERGLYCEM IA K750 ABSCESS OF 01-26-2017 [facility] LIVER INTERNAL & PEDIATR Z1883 RETAINED 01-26-2017 [facility] STONE OR INTERNAL & CRYSTALLINE PEDIATR FRAGMENTS Z8719 PERSONAL 01-26-2017 [facility] HISTORY INTERNAL & OTHER PEDIATR DISEASES DIGESTIVE SYSTEM 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 M6281 MUSCLE 01-18-2017 [facility] WEAKNESS RESPITATORY GENERALIZED SERVICES R296 REPEATED 01-18-2017 [facility] L0291 CUTANEOUS 01-12-2017 [facility] ABSCESS INTERNAL & UNSPECIFIED PEDIATR R1900 INTRA-ABD & 01-12-2017 [facility] PELVIC INTERNAL & SWELLING PEDIATR MASS & LUMP UNS SITE Z794 TILER 01-12-2017 [facility] CURRENT USE INTERNAL & OF INSULIN PEDIATR E119 TYPE 2 11-04-2016 [facility] WITHOUT COMPLICATIO NS I2699 OTH 11-04-2016 [facility] PULMONARY [facility] & EMBOLISM PEDIATR W/O ACUTE COR PULMONALE I272 OTHER 11-04-2016 [facility] SECONDARY INTERNAL & PULMONARY PEDIATR HYPERTENSIO N L82329 PERSONAL 11-04-2016 [facility] HISTORY OF INTERNAL & PULMONARY PEDIATR EMBOLISM R339 RETENTION 10-28-2016 [facility] P E1122 TYPE 2 10-19-2016 [facility] MELL[facility]US MEDICAL W/DIAB CHRON KIDNEY DZ N390 URINARY 10-19-2016 [facility] TRACT REGIONAL INFECTION MEDICAL SITE NOT SPECIFIED [...] 1-4 REHABILITAT CKD OR UNS ION CKD H33752 FOOT DROP 09-25-2016 [facility] RIGHT FOOT [facility] REHAB[facility] ION N183 CHRONIC 09-25-2016 [facility] KIDNEY [facility] DISEASE REHABILITAT STAGE 3 ION MODERATE R5381 OTHER 09-25-2016 [facility] MALAISE [facility] ION I959 HYPOTENSION 09-22-2016 [facility] UNSPECIFIED ASSOCIAT M7989 OTHER 09-22-2016 [facility] SPECIFIED RADIOLOGY SOFT TISSUE ASSOCIAT DISORDERS R000 TACHYCARDIA 09-22-2016 [facility] UNSPECIFIED ASSOCIAT A4189 OTHER 09-20-2016 [facility] SPECIFIED N EMERGENCY SEPSIS PHYS A419 SEPSIS 09-20-2016 [facility] UNSPECIFIED REGIONAL ORGANISM MEDICAL E875 HYPERKALEMI 09-20-2016 [facility] 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 09-20-2016 [facility] S[facility] LG RADIOLOGY INTEST W/O ASSOCIAT PERF/ABSC W/O BLEED N179 ACUTE 09-20-2016 [facility] KIDNEY N EMERGENCY FAILURE PHYS UNSPECIFIED R0602 SHORTNESS 09-20-2016 [facility] OF BREATH RADIOLOGY ASSOCIAT R112 NAUSEA WITH 09-20-2016 [facility] VOMITING [facility] UNSPECIFIED ASSOCIAT R410 DISORIENTAT 09-20-2016 [facility] ION [facility]IOLOG[facility] UNSPECIFIED ASSOCIAT R531 WEAKNESS 09-20-2016 [facility] R935 ABN FIND DX 09-20-2016 [facility] IM[facility] OTH [facility]IOLOG[facility] ABD REGIONS ASSOCIAT RETROPERITO NEUM D509 IRON 09-11-2016 [facility] UNSPECIFIED 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 E785 HYPERLIPIDE 09-11-2016 [facility] UNSPECIFIED [facility]ALTH CTR I10 ESSENTIAL 08-26-2016 [facility] HYPERTENSIO HEALTH CTR N T66334 CUTANEOUS 08-19-2016 [facility] ABSCESS OF RADIOLOGY ABDOMINAL ASSOCIAT WALL K651 PERITONEAL 07-31-2016 [facility] ABSCESS [facility] ASSOCIAT M1990 UNSPECIFIED 07-30-2016 [facility] [...] CTR TIETZE R0781 PLEURODYNIA 07-22-2016 [facility] [id number] FRACTURE 07-22-2016 [facility] ONE RIB INC RIGHT INITIAL ENCNTR CLOSED FX B351 TINEA 07-16-2016 [facility] UNGUIUM N51871 PAIN IN 07-16-2016 [facility] RIGHT FOOT R73041 PAIN IN 07-16-2016 [facility] LEFT FOOT H75797 PAIN IN 06-12-2016 [facility] LEFT LOWER INC LEG C44282 PAIN IN 05-15-2016 [facility] RIGHT KNEE [facility] G96900 PAIN IN 05-15-2016 [facility] LEFT KNEE [facility] R3914 FEELING OF 04-08-2016 [facility] P EMPTYING R5383 OTHER 04-02-2016 [facility] FATIGUE MARY HOLDINGS E1140 TYPE 2 DM 02-27-2016 [facility] WITH PHARMACY DIABETIC #1569 NEUROPATHY UNSPECIFIED 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 [facility] D23091 TYPE 2 12-26-2015 [facility] DIABETES [facility] MELLITUS HEALTH CTR W/HYPOGLYCE ANKITA W/O COMA M68571 PAIN IN 12-26-2015 [facility] RIGHT HIP [facility] CTR E98196 OTHER LONG 12-26-2015 [facility] TERM [facility] CURRENT HEALTH CTR DRUG THERAPY Procedures Procedure DOS Code Location Performer Comment CUL BACT 32491 [facility] XCPT 7 MARY MARY URINE HOLDINGS HOLDINGS BLOOD/STO OL AEROBIC ISOL COMMODE E0165 MEG MEG CHAIR 7 RESPITATO RESPITATO MOBILE/ST [facility] ATIONARY SERVICES SERVICES W/DETACHB LE ARMS CUL BACT 65372 [facility] XCPT 7 MARY MARY URINE HOLDINGS HOLDINGS BLOOD/STO OL AEROBIC ISOL CUL BACT 87486 [facility] AEROBIC 7 W W [facility] MEDICAL DEFINITIV E EA ISOL CULTURE 41555 [facility] BACTERIAL 7 W W [facility] QUANTTATI MEDICAL MEDICAL VE COLONY COUNT URINE BASIC 62458 [facility] METABOLIC 7 W W PANEL REGIONAL REGIONAL CALCIUM MEDICAL MEDICAL TOTAL URNLS DIP 77536 K[facility] BENAVIDEZWROSY 7 W W STICK/TAB REGIONAL [facility] LET MEDICAL MEDICAL REAGENT AUTO MICROSCOP Y SUSCEPTIB 13439 KATHIE VÁZQUEZ LTY STDY 7 W W ANTIMICRB REGIONAL [facility] IAL MEDICAL MEDICAL MICRO/AGA R DILUTJ COMMODE E0165 MEG MEG CHAIR 7 RESPITATO RESPITATO MOBILE/ST RY RY ATIONARY SERVICES SERVICES W/DETACHB [facility] 63431 [facility] 7 PHYSICAL DAY MEDICINE MANAGEMEN AND T 30 MIN/< SBSQ 60836 [place] [address] PHYSICAL CARE/DAY MEDICINE 15 AND MINUTES SBSQ 79501 [facility] 7 CARE/DAY 25 MINUTES SBSQ 92436 [place] [address] PHYSICAL CARE/DAY MEDICINE 25 AND MINUTES SBSQ 98292 [facility] 7 PHYSICAL CARE/DAY MEDICINE 25 AND MINUTES SBSQ 27773 [facility] 7 PHYSICAL CARE/DAY MEDICINE 25 AND MINUTES SBSQ 78259 [facility] 7 CARE/DAY 15 MINUTES SBSQ 94007 [facility] 7 CARE/DAY 15 MINUTES SBSQ 64196 [facility] 7 PHYSICAL CARE/DAY MEDICINE 25 AND MINUTES SBSQ 26062 [facility] 7 CARE/DAY 25 MINUTES SBSQ 79907 [facility] 7 CARE/DAY 25 MINUTES SBSQ 99602 [facility] 7 PHYSICAL CARE/DAY MEDICINE 25 AND MINUTES SBSQ 38010 [facility] 7 PHYSICAL CARE/DAY MEDICINE 25 AND MINUTES INITIAL 19882 [facility] 7 CARE/DAY 70 MINUTES SBSQ 12023 [facility] 7 PHYSICAL CARE/DAY MEDICINE 25 AND MINUTES SBSQ [address]2856 [place] [address] PHYSICAL CARE/DAY MEDICINE 15 AND MINUTES SBSQ 79920 [facility] 7 PHYSICAL CARE/DAY MEDICINE 25 AND MINUTES HOSPITAL 43099 [facility] DIS[facility] 7 W DAY H[facility]PITALI MANAGEMEN ST T > 30 MIN INITIAL 79077 [facility] 7 PHYSICAL CARE/DAY MEDICINE [address] S[address] [facility] 7 W CARE/DAY HOSPITALI [address] [facility] 7 W CARE/DAY HOSPITALI [address] S[address] [facility] 7 W CARE/[place] [place] [address] [facility] HEAD/BRAI 7 N W/O RADIOLOGY CONTRAST ASSOCIAT MATERIAL RADIOLOGI 77958 [facility] C 7 EXAMINATI RADIOLOGY ON CHEST ASSOCIAT SINGLE VIEW FRONTAL DUP-SCAN 46929 [facility] XTR VEINS 7 COMPLETE RADIOLOGY ASSOCIAT BILATERAL STUDY PULMONARY 81650 [facility] 7 VENTILATI RADIOLOGY ON & ASSOCIAT PERFUSION IMAGING ECHO 94273 [facility] R-T 7 N N 2D W/WOM-MOD E COMPL SPEC&COLR D SBSQ 24671 [facility] 7 W CARE/DAY HOSPITALI [address] MINUTES RADIOLOGI 35435 [facility] C 7 EXAMINATI RADIOLOGY RADIOLOGY ON CHEST ASSOCIAT ASSOCIAT SINGLE VIEW FRONTAL CRITICAL 33850 [facility] 7 W ILL/INJUR HOSPITALI ED ST PATIENT INIT 30-[address] [place] [address] [facility] ABDOMEN & 7 PELVIS RADIOLOGY RADIOLOGY W/O ASSOCIAT ASSOCIAT CONTRAST MATERIAL ECG 61084 [facility] ROUTINE 7 RAHAT ECG EMERGENCY W/LEAST PHYS 12 LDS I&R ONLY COMMODE E0165 MEG MEG CHAIR 7 RESPITATO RESPITATO MOBILE/ST [facility] ATIONARY SERVICES SERVICES W/DETACHB LE ARMS BLOOD 47483 [facility] LAB [facility] COUNT 7 MARY MARY COMPLETE HOLDINGS HOLDINGS AUTO&AUTO DIFRNTL WBC HGB 61422 [facility]NDEZ [facility] 7 [facility] [employer] DEVICE CTR CLEARED FDA HOME USE GLUC BLD 20415 [facility] HERNANDEZ GLUC MNTR 7 [facility] CLEARED CTR FDA SPEC HOME USE COLLECTIO 75626 [facility] LAB L[facility]IA N VENOUS 7 [facility] BLOOD HOLDINGS HOLDINGS VENIPUNCT URE COMPREHEN 07319 LAB [facility] LAB [facility]IA SIVE 7 [facility] METABOLIC [place] [address] LAB [facility] LAB [facility] IRON 7 [facility] HOLDINGS HOLDINGS FEDERALLY G0467 [facility] CO 7 [facility] CTR CTR CENTER VISIT ESTAB PT FEDERALLY G0467 [facility] 7 [facility] CTR CTR CENTER VISIT ESTAB PT BLD GLU A4253 [facility] TEST/REAG 7 PHARMACY PHARMACY T STRIPS #1569 #1569 HOME BLD GLU MON-50 COMMODE E0165 MEG MEG CHAIR 7 RESPITATO RESPITATO MOBILE/ST [facility] ATIONMOUNT [place] SERVICES SERVICES W/[place] [address] [facility] ABDOMEN 7 W/O & RADIOLOGY RADIOLOGY W/[place] [address] [facility] ABDOMEN 7 W/CONTRAS RADIOLOGY RADIOLOGY T ASSOCIAT ASSOCIAT MATERIAL IMG-GUIDE 34151 [facility] FLUID 7 COLLXN RADIOLOGY DRAINAG ASSOCIAT CATH PERITON PERQ DRAINAGE [id number] [facility] LIVER 7 W W [facility] [place] [address] ABDOMEN 7 KODY GATES W/O CONTRAST PHYSICIAN PHYSICIAN MATERIAL S November RADEX 15045 RADIOLOGY JESSICA RIBS UNI 7 INC W/POSTERO ANT CH MINIMUM 3 VIEWS FEDERALLY G0467 [facility] 7 [facility] CTR CTR CENTER VISIT ESTAB PT DEBRIDEME 34259 [facility] PAWSAT NT NAIL 7 ANY METHOD 6/> BLD GLU A4253 [facility] TEST/REAG 7 PHARMACY PHARMACY T STRIPS #1569 #1569 HOME BLD GLU MON-50 FEDERALLY G0467 [facility] 6 [facility] CTR CTR CENTER VISIT ESTAB PT GLUC BLD 34850 [facility] DAVID GLUC MNTR 6 [facility] [employer] CLEARED CTR FDA SPEC HOME USE RADIOLOGI 81751 [facility] DAVID C 6 FAMILY CAMPOS [employer] ON TIBIA CTR & FIBULA 2 VIEWS FEDERALLY G0467 [facility]VIS [facility] 6 [facility] CTR CTR CENTER VISIT ESTAB PT BLD GLU A4253 [facility] TEST/REAG 6 PHARMACY PHARMACY T STRIPS #1569 #1569 HOME BLD GLU MON-50 URNLS DIP 54569 ALIZE WILLARD 6 [facility] LET RGNT P NON-AUTO W/O MICRSCP COMPREHEN 64819 LAB [facility] LAB L[facility]IA SIVE 6 [facility] METABOLIC HOLDINGS HOLDINGS PANEL GLUC BLD 14623 [facility] HERNANDEZ GLUC MNTR 6 [facility] [employer] [facility] CLEARED CTR FDA SPEC HOME USE COLLECTIO 42236 LAB [facility] LAB LIDIA N VENOUS 6 MARY MARY BLOOD HOLDINGS HOLDINGS VENIPUNCT URE BLOOD 00432 LAB [facility] LAB LIDIA COUNT 6 MARY MARY COMPLETE HOLDINGS HOLDINGS AUTO&AUTO DIFRNTL WBC HGB 27125 [facility] HER[facility]NDEZ GLYCOSYLA 6 [facility] CTR CLEARED FDA HOME USE FEDERALLY G0467 CARA MARROQUIN CO 6 [facility] CTR CTR CENTER VISIT ESTAB PT BLD GLU A4253 [facility] TEST/REAG 6 PHARMACY PHARMACY T STRIPS #1569 #1569 HOME BLD GLU MON-50 FEDERALLY G0467 [facility]VIS [facility] 6 [facility] CTR CTR CENTER VISIT ESTAB PT BLOOD 69962 LAB [facility] LAB LIDIA COUNT 6 MARY MARY COMPLETE HOLDINGS HOLDINGS AUTO&AUTO DIFRNTL WBC COLLECTIO 15742 LAB [facility] LAB LIDIA N VENOUS 6 MARY MARY BLOOD HOLDINGS HOLDINGS VENIPUNCT URE GLUC BLD 22141 [facility] HERNANDEZ GLUC MNTR 6 [facility] [employer] [facility] CLEARED CTR FDA SPEC HOME USE COMPREHEN 95094 LAB [facility] LAB LIDIA SIVE 6 MARY MARY METABOLIC HOLDINGS HOLDINGS PANEL DEBRIDEME 05862 PAWSAT PAWSAT NT NAIL 6 MAR MAR ANY METHOD 6/> COMPREHEN 47926 LAB [facility] LAB LIDIA SIVE 6 [facility] METABOLIC HOLDINGS HOLDINGS PANEL GLUC BLD 50191 CAR[facility] HERNANDEZ GLUC MNTR 6 [facility] CLEARED CTR FDA SPEC HOME USE BLOOD 16536 LAB [facility] LAB L[facility]IA COUNT 6 [facility] COMPLETE HOLDINGS HOLDINGS AUTO&AUTO DIFRNTL WBC FEDERALLY G0467 [facility] 6 [facility] CTR CTR CENTER VISIT ESTAB PT BLD GLU A4253 [facility] TEST/REAG 6 PHARMACY PHARMACY T STRIPS #1569 #1569 HOME BLD GLU MON-50 Encounters Encounter Start End Date Code Location Performer Type Date OFFICE 57734 [facility] OUTPATIEN [address] T VISIT & 25 PEDIATR MINUTES OFFICE 70589 [facility] OUTPATIEN [address] T VISIT & 25 PEDIATR MINUTES OFFICE 52595 [facility] OUTPATIEN [address] T VISIT & 25 PEDIATR MINUTES OFFICE 03302 [facility] WILL[facility] OUTPATIEN 7 7 [facility] 10 P MINUTES HOSPITAL KATHIE - [facility] ALIZE WILLARD OUTPATIEN 7 7 [facility] 15 P MINUTES OFFICE 98363 [facility] OUTPATIEN 7 7 [facility] EMERGENCY NEW 30 CLINIC MINUTES [facility] CARDINAL - 7 7 [facility]PATIENT [facility]IL[facility] ATION EMERGENCY 48100 [facility] DEPT 7 7 RAHAT VISIT EMERGENCY HIGH PHYS SEVERITY& THREAT [email or web address] KATHIE - 7 7 W INPATIENT [facility] MEDICAL OFFICE 93851 [facility] OUTPATIEN 7 7 FAMILY T VISIT HEALTH 15 CTR MINUTES OFFICE 89950 [facility] OUTPATIEN 7 7 FAMILY T VISIT HE[facility] 25 [facility] - 7 7 W INPATIENT [facility] MEDICAL EMERGENCY 96602 [facility] 7 7 RAHAT VISIT EMERGENCY HIGH PHYS SEVERITY& THREAT FUNCJ OFFICE 37240 [facility] OUTPATIEN 7 7 FAMILY T VISIT HEALTH 25 CTR MINUTES OFFICE 75024 [facility] OUTPATIEN 6 6 FAMILY T VISIT HEALTH 25 CTR MINUTES OFFICE 16092 [facility] OUTPATIEN 6 6 FAMILY T VISIT HEALTH 15 CTR MINUTES OFFICE 49518 ALIZE WILLARD OUTPATIEN 6 6 [facility] 10 P MINUTES OFFICE 23710 [facility] OUTPATIEN 6 6 FAMILY T VISIT HEALTH 25 CTR MINUTES OFFICE 15492 [facility] OUTPATIEN 6 6 FAMILY T VISIT HEALTH 25 CTR MINUTES OFFICE 07424 [facility] OUTPATIEN 6 6 FAMILY T VISIT HEALTH 25 CTR MINUTES
--- OUTSIDE RECORDS SUMMARY | 2017-02-19 20:14 | External Medical Summary Rpt ---
Author Author , GABY GRIFFIN Address Unknown Phone [email or web address] Immunization Name Date Rout CVX Reac Dose [...]
--- OUTSIDE RECORDS SUMMARY | 2017-02-19 20:14 | External Medical Summary Rpt ---
Author Author GARCIAANTONIA Lindsey, [facility] Organization [facility] Address Unknown Phone Unavailable Payers Section Payer Plan Name Group ID Member ID Coverage Coverage Start End Date Date [place] 2073 [id number] No No Gov A informati informati Services on in on in Medicare source source data data AARP 1569 [id number] No No 12 informati informati on in on in source source data data Results CBC W Auto Differential panel in Blood Observa Value Referen Units Interpr Notes Date tion ce etation Range Basophils 0 - 0.2 K/MM3 Normal No Feb 19 informati 2017 4:01 [#/volume on in PM ] in source Blood by data Automated count Basophils 0.1 - 2.0 % Normal No Feb 19 informati 2017 4:01 leukocyte on in PM s in source Blood by data Automated count Eosinophi 0.0 - 0.4 K/mm3 Normal No Feb 19 ls informati 2017 4:01 [#/volume on in PM ] in source Blood by data Automated count Eosinophi 0.1 - % Normal No Feb 19 ls/100 12.0 informati 2017 4:01 leukocyte on in PM s in source Blood by data Automated count Granulocy 1.3 - 8.0 K/mm3 Normal No Feb 19 fox informati 2017 4:01 [#/volume on in PM ] in source Blood by data Automated count Granulocy 37.0 - % Normal No Feb 19 fox/100 80.0 informati 2017 4:01 leukocyte on in PM s in source Blood by data Automated count Hematocri 42.0 - % Low No Feb 19 t [Volume 52.0 informati 2017 4:01 on in PM Fraction] source of Blood data Hemoglobi 14.1 - g/dL Low No Feb 19 n 18.0 informati 2017 4:01 [Mass/vol on in PM ume] in source Blood data Lymphocyt 0.7 - 4.5 K/mm3 Normal No Feb 19 es informati 2017 4:01 [#/volume on in PM ] in source Unspecifi data ed specimen by Automated count Lymphocyt 10 - 50 % Normal No Feb 19 es informati 2016 4:01 [#/volume on in PM ] in source Unspecifi data ed specimen by Automated count Erythrocy 27 - 31.2 pg Normal No Feb 19 te mean informati 2016 4:01 corpuscul on in PM ar source hemoglobi data n [Entitic mass] Erythrocy 31.8 - g/dl Low No Feb 19 te mean 35.4 informati 2016 4:01 corpuscul on in PM ar source hemoglobi data n concentra tion [Mass/vol ume] by Automated count Erythrocy 82.2 - fl Normal No Feb 19 te mean 97.8 informati 2016 4:01 corpuscul on in PM ar volume source [Entitic data volume] by Automated count Monocytes 0.1 - 1.0 K/mm3 Normal No Feb 19 informati 2016 4:01 [#/volume on in PM ] in source Blood by data Automated count Monocytes 1.7 - 9.3 % Normal No Feb 19 informati 2016 4:01 leukocyte on in PM s in source Blood by data Automated count Platelet 7.4 - fl Normal No Feb 19 mean 10.4 informati 2017 4:01 volume on in PM [Entitic source volume] data in Blood by Automated count Platelets 142 - 424 K/mm3 Low No Feb 19ati 2016 4:01 [#/volume on in PM ] in source Blood data Erythrocy 4.6 - 6.2 M/mm3 Low No Feb 19 fox informati 2016 4:01 [#/volume on in PM ] in source Amniotic data fluid Erythrocy 11.5 - % Normal No Feb 19 te 17.5 informati 2016 4:01 distribut on in PM ion width source [Entitic data volume] by Automated count Leukocyte 4.8 - K/MM3 Normal No Feb 19 s 10.8 informati 2016 4:01 [#/volume on in PM ] in source Blood data CT ABDOMEN WO CONTRAST Observa Value Referen [...] patient to the Emergen cy\\.br\\ Room at [facility].\\. br\\\\.br \\Antoine juárez MD. [...]
--- OUTSIDE RECORDS SUMMARY | 2017-02-19 20:14 | External Medical Summary Rpt ---
Author Author GARCIAANTONIA Lindsey, [facility] [employer] Organization [facility] [employer] Address Unknown Phone Unavailable Payers Section Payer Plan Name Group ID Member ID Coverage Coverage Start End Date Date [place] 2073 [id number] No No Gov A informati informati Services on in on in Medicare source source data data A[employer] [id number] No No 12 informati informati on in [...] patient to the Emergen cy\\.br\\ Room at [facility].\\. br\\\\.br \\Antoine juárez MD. CT ABDOMEN PELVIS [...]
--- OUTSIDE RECORDS SUMMARY | 2017-02-19 20:14 | External Medical Summary Rpt ---
Author Author , GABY GRIFFIN Address Unknown Phone [email or web address] Immunization Name Date Rout CVX Reac Dose [...]
[2017-02-19 20:52] VITALS: BP 147/70
[2017-02-19 23:46] VITALS: BP 135/73
[2017-02-20 03:48] VITALS: BP 146/71
--- NOTE | 2017-02-20 07:00 | Discharge Summary Standard ---
Demographics: Admit date: 02/19/17 Chief complaint: Chest pain PRIMARY DIAGNOSIS: chest pain Allergies: Coded Allergies: procaine (From NOVOCAIN) (02/19/17) History of present illness: History of present illness: A [id number] male with no coronary artery disease history presented from [facility] where he is a resident after he developed a brief episode (2 minutes or less) of sharp left-sided chest pain while he was produce pain in physical therapy. His daughter is at bedside and provide some additional history. They believe the nurse who was supervising him and thought he may have some irregular heartbeat. He was transferred to our emergency department for evaluation. In the ER the patient had a sinus rhythm. Cardiac enzymes were negative 1. He was admitted for rule out of myocardial infarction with serial electrocardiogram and enzymes. Past medical history: Family HX Family Hx Insignificant No Diabetes Yes CAD Yes Hypertension Yes Hyperlipidemia Yes Cancer Yes TB No Immunization HX DT/Tetanus UNKNOWN Flu LAST YEAR Pneumonia 1-4 YRS TB Test in last year Yes Result Unknown General CAD? No Angina: No [place]: No Hypertension? Yes Hyperlipidemia? No CHF? No DVT? No PE? No COPD? No Asthma? No Anemia? No GERD? No Gastric ulcers? No GI Bleed? No Hernia? No Thyroid Problems? No Hypothyroidism? No CVA? Yes Seizures? 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 Yes Renal Insuffiency? No UTI? No Stones? No BPH? No GB Disease: Yes Nephritic Syndrome? No Asplenia? No Hepatitis? No Sickle Cell Disease? No Arthritis? Yes Migraines? No Cataracts? No Glaucoma? No MRSA? No HIV? No TB? No Anxiety? No Depression? No Cancer? Yes Site: LE[place]EMIA More? 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 Cholecystectomy Current home meds: Reported Medications INSULIN NPL/INSULIN LISPRO (Humalog Mix 75-25 Vial) 25 UNITS SC DAILY INSULIN NPL/INSULIN LISPRO (Humalog Mix 75-25 Vial) 20 UNITS SC DAILY Aspirin 81 MG PO DAILY Carvedilol (Coreg 6.25MG) 6.25 MG PO BID Apixaban (Eliquis) 5 MG PO BID Finasteride (Proscar 5MG Tablet) 5 MG PO DAILY Furosemide 40 MG PO BID Metronidazole (Flagyl 250MG) 500 MG PO TID Omeprazole (Omeprazole 20MG) 20 MG PO DAILY POTASSIUM CHL (Potassium Chloride) 20 MEQ PO DAILY TAMSULOSIN HCL (Flomax 0.4MG) 0.4 MG PO QHS Vancomycin HCl 250 MG PO DAILY Social Hx: Smoking HX Tobacco Yes Type Cigarettes Packs/day N/A Are you/the child exposed to second-hand smoke: No Alcohol Alcohol: No Hx of Drug Use Drug Use? No Review of systems: Constitutional No: fever, malaise. Respiratory no symptoms reported. Cardiovascular see HPI Gastrointestinal/Abdominal no symptoms reported Genitourinary no symptoms reported. Musculoskeletal no symptoms reported. Neurological Yes: no symptoms reported. Exam: Lab data for last 24 hours: Laboratory Tests 02/20/17 0608: POC Glucose 272 H 02/19/17 1830: Creatine Kinase 35 L, CK-MB (CK-2) Rel Index 1.7, CK and CKMB Interp 0.6, Troponin I < 0.02 02/19/17 1601: Sodium 134 L, Potassium 5.0, Chloride 102, Carbon Dioxide 27, BUN 27 H, Creatinine 1.5 H, Estimated Creat Clear 37 L, Estimated GFR (MDRD) 44, Glucose 367 H, Calcium 8.8, Total Bilirubin 0.2, AST 16, ALT 12, Alkaline Phosphatase 81, Creatine Kinase 41, CK and CKMB Interp < 0.5, Troponin I < 0.02, Total Protein 7.7, Albumin 3.0 L, Globulin 4.7 H, Albumin/Globulin Ratio 0.6 L, WBC 5.0, RBC 3.91 L, Hgb 11.0 L, Hct 35.7 L, MCV 91.4, RDW 16.9, Plt Count 136 L , MPV 8.9, Gran % 69.9, Gran # 3.5, Lymphocytes % 18.7, Monocytes % 5.0, Eosinophils % 5.4, Basophils % 1.2, Lymphocytes # 0.9, Monocytes # 0.3, Eosinophils # 0.3, Basophils # 0.1, PUBS MCHC 30.9 L, MCH 28.2 Admission vital signs: 1ST Vital Signs Result Date Time Pulse Ox 100 02/19 1553 B/P 116/73 02/19 155 Temp 98.4 02/19 1553 Pulse 75 02/19 1553 Resp 16 02/19 1553 O2 Delivery OXYGEN 02/19 1913 Exam General appearance: normal appearance, alert, awake ENT: normal exam, mucous membranes moist Neck: normal inspection, non-tender, no carotid bruit, no JVD Cardiovascular: normal exam Respiratory: normal exam, clear to auscultation Hospital Course Hospital Course: Patient underwent serial electrocardiogram and enzymes without abnormality detected. He did not have any further chest pain. Patient believes his therapy may have contributed some to the chest pain as he had been working very hard the day prior and admits that he felt very tired and his arms were weak. Patient was discharged back to [facility]. Medications Medications: Discharge meds are as noted. Follow up Follow up in office in: 1 DAY with: KATHIE JOYA at 0700
--- NOTE | 2017-02-20 07:13 | PHARMACY CLINIC NOTE ---
Patient Demographics Patient Demographics Admission date: 02/19/17 Date: 02/20/17 Time: 0712 Allergies Coded Allergies: procaine (From NOVOCAIN) (02/19/17) HEIGHT- FT: 5 IN: 8.00 K.910 VTE General Information Labs: Laboratory Tests 02/19 1601 Hematology Hgb (14.1 - 18.0 g/dL) 11.0 L Hct (42.0 - 52.0 %) 35.7 L Plt Count (142 - 424 K/mm3) 136 L Disclaimer The following section includes nursing documentation that has been pulled in for pharmacy review. Patient's VTE score: 1 Patient's VTE Risk: VERY LOW RISK Clinical trial participant? No VTE prophylaxis NQF [id number] VTE prophylaxis ordered? Yes Type of prophylaxis/treatment: MEMO at 0713
[2017-02-20 08:00] VITALS: BP 105/60
[2017-02-20 10:57] VITALS: BP 105/60
[2017-02-20 11:03] VITALS: BP 105/60
== END 2017-02-20 11:10 ==
LOC: ER 15:46 → 2ND 17:34 → ER 17:34 → 2ND 18:13
PROVIDERS: Emergency Medicine
DX: R07.9 Chest pain, unspecified (principal); I10 Essential (primary) hypertension; E11.9 Type 2 diabetes mellitus without complications; C95.90 Leukemia, unspecified not having achieved remission
CPT/HCPCS: G0378; J3370